=== PATIENT | female | born 1955 | race Caucasian/White ===

== ENCOUNTER → 2016-09-05 | Outpatient (CLI) | payer BC ==
--- NOTE | 2016-09-05 19:54 | WWHP ---
CHIEF COMPLAINT: The patient is here for her routine gynecologic exam. HPI: This is a 61-year-old G1, P1 with an LMP of 1982. She is status post TERESA/BSO for benign reasons. She previously saw Dr. Rod for her gynecologic care. She is without gynecologic complaints. She did have a recent bone density test on 08/16/2016 which showed osteopenia. PAST MEDICAL HISTORY: Chronic hypertension, elevated cholesterol, asthma, anxiety, and osteopenia. Dr. Salazar is her primary care physician. MEDICATIONS: 1. Amlodipine with Benazepril 5/20 mg 1 daily. 2. Celecoxib 200 mg 1 daily. 3. Famotidine 20 mg b.i.d. 4. TriCor generic 145 mg 1 daily. 5. Montelukast 10 mg 1 daily. 6. Sertraline 100 mg 1 daily. 7. [place] 7.5/325 q.6h p.r.n. 8. Albuterol inhaler p.r.n. 9. Calcium 600 mg b.i.d. 10. Vitamin D3 1000 units daily. 11. Vitamin B12 1000 units daily. 12. Selenium 200 mg daily. ALLERGIES: No known drug allergies. PAST SURGICAL HISTORY: Left knee replacement 2015. Left shoulder surgery 2015, appendectomy 1998, cholecystectomy 1999, TERESA/BSO 1982. Colonoscopy in 2015 and this was her second one, section in the past. PAST DIAMOND PICKER HISTORY: She is status post TERESA/BSO for uterine fibroids and benign bleeding. She has no history of STDs. SOCIAL HISTORY: She quit smoking in 1981 and has about 4 alcoholic drinks per day. Denies drug use. She is and is not seeing anybody and has not been sexually active for many years. 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 She has 2 grandchildren. FAMILY HISTORY: Sister had breast cancer. Mother had colon cancer. Father had bladder cancer. Mother also had CHF and Alzheimer's. Father had coronary artery disease. Brother had diabetes. REVIEW OF SYSTEMS: Weight has been stable. RESPIRATORY: Occasional asthma symptoms. She denies cardiac problems. GI: Occasional bowel urgency in the morning and this has been since her cholecystectomy. PHYSICAL EXAM: Blood pressure 126/83. Height 4 feet 9 inches. Weight 159 pounds. Temperature 96.3, pulse 68. This is a short statured, well-nourished female who is alert and oriented x3 in no acute distress. HEENT is within normal limits. NECK: Supple without mass or thyromegaly. CHEST AND LUNGS: Clear to auscultation. HEART: Regular rate and rhythm. Breasts are without mass or discharge. Axillary exam is negative for adenopathy. BACK: Negative for CVA tenderness. ABDOMEN: Soft, nontender, without palpable masses. PELVIC EXAM: External genitalia reveals mild atrophy without lesions. Vagina reveals mild atrophy without lesions. There is no evidence of prolapse. Bimanual exam is negative for mass or tenderness. Rectovaginal exam is negative for mass or tenderness and is negative for occult blood. EXTREMITIES: Nontender. IMPRESSION: 1. A 61-year-old menopausal female, status post TERESA/BSO for benign reasons with normal gynecologic exam. 2. History of osteopenia. PLAN: 1. Pap smears have been discontinued. 2. Self breast examination was discussed. 3. Mammogram is due later this month and a slip was given to patient for this. 4. Osteoporosis prevention was discussed. Will plan on repeating bone density testing in 2 years. 5. She will return in one year.
== END | disposition home or self-care (01) ==
LOC: WWCWWP 09:58
PROVIDERS: ATTEND Obstetrics & Gynecology

== ENCOUNTER → 2016-09-19 | Outpatient (CLI) | payer BC ==
--- NOTE | 2016-09-21 09:28 | MM ---
Reason for exam: screening (asymptomatic). Last mammogram was performed 1 year ago. History: Family history of breast cancer in sister at age 58. Physical Findings: A clinical breast exam by your physician is recommended on an annual basis and results should be correlated with mammographic findings. MG Screening Mammo w CAD Bilateral CC and MLO view(s) were taken. Prior study comparison: September 20, 2015, mammogram, performed at [facility]. September 17, 2014, mammogram, performed at [facility]. Focal asymmetry upper right MLO view, 4.7cm from nipple. ASSESSMENT: Incomplete: need additional imaging evaluation, BI-RAD 0 RECOMMENDATION: Special view mammogram of the right breast. If lesion persists on supplemental views, image directed ultrasound is recommended. [facility] will attempt to contact patient to return for supplemental views and ultrasound if indicated.
== END | disposition home or self-care (01) ==
LOC: RADMAMWWP 14:53
PROVIDERS: ATTEND Obstetrics & Gynecology
DX: Z12.31 Encounter for screening mammogram for malignant neoplasm of breast (principal); R92.2 Inconclusive mammogram

== ENCOUNTER 2016-09-20 06:53 | Day surgery (SDC) | payer BC ==
[2016-07-31 11:41] VITALS: BMI 34.6
--- NOTE | 2016-09-19 14:34 | HP ---
DATE OF ADMISSION: 09/20/2016 Bebe New is a 61-year-old patient seen with progressive right shoulder pain. After having treatment options discussed, she elected to proceed with right shoulder arthroscopy. Consent was obtained. Past medical history is asthma, hypertension, hyperlipidemia. PAST SURGICAL HISTORY: Left shoulder arthroscopy, carpal tunnel release, right knee arthroscopy. DAILY MEDICATIONS: 1. Sertraline. 2. Celebrex. 3. Lotrel. 4. Singulair. 5. TriCor. 6. [place]. ALLERGIES: None. SOCIAL HISTORY: Patient denies current tobacco use. Physical evaluation of right shoulder: Flexion 150 degrees, abduction 110 degrees, external rotation is 30 degrees with pain and weakness. Tenderness along the anterolateral acromion and rotator cuff insertion. Impingement positive at 100 degrees, drop arm sign positive. Distal neurovascular exam intact. Radiographs of right shoulder revealed a type 2 anterior acromion, acromioclavicular joint osteoarthritis and cystic changes of the tuberosity. MRI right shoulder revealed a large retracted rotator cuff tendon tear. IMPRESSION: Right shoulder impingement with rotator cuff tear. PLAN: Right shoulder arthroscopy with subacromial decompression, probable arthroscopic rotator cuff repair, possible biceps tenotomy, possible Cristina procedure and debridement.
[~2016-09-20 06:53] MED LIST: DEXAMETHASONE SOD PHOSPHATE 10 MG/ML 1 ML VIAL IV ONE; LACTATED RINGERS 1,000 ML IV SCH; LIDOCAINE 1% 20 ML VIAL (10MG/ML) FOR IV START INTRADERMA PRN; MIDAZOLAM 2 MG/2 ML VIAL IV PRN; ONDANSETRON 4 MG/2 ML VIAL IVP ONE; SCOPOLAMINE 1.5MG/72HR PATCH TRANSDERM ONE; ceFAZolin 1,000 MG in DEXTROSE/WATER 1 50ML.BAG IV ONE; fentaNYL (PF) 50 MCG/ML 20 ML VIAL IVP PRN
[2016-09-20] MEDS ORDERED: LIDOCAINE 1% 20 ML VIAL (10MG/ML) FOR IV START INTRADERMA ONE (07:28)
[2016-09-20 07:32] LABS: Basophils # (A) 0.1 k/uL (0-0.2); Basophils % (A) 1 %; CH 27.9; CHCM 32.5; Eosinophils # (A) 0.5 k/uL (0-0.7); Eosinophils % (A) 6 %; HCT 42.4 % (34.0-46.0); HDW 2.54; HGB 13.6 gm/dL (11.4-16.0); Luc # (Auto) 0.16; Luc % (Auto) 2; Lymphocytes # (A) 2.1 k/uL (1.0-4.8); Lymphocytes % (A) 27 %; MCH 27.7 pg (25.0-35.0); MCHC 32.2 g/dL (31.0-37.0); MCV 86.2 fL (80.0-100.0); Mean Platelet Volume 8.1; Monocytes # (A) 0.5 k/uL (0-1.0); Monocytes % (A) 7 %; Neutrophils # (A) 4.4 k/uL (1.3-7.7); Neutrophils % (A) 57 %; RBC 4.92 m/uL (3.80-5.40); RDW 12.8 % (11.5-15.5); WBC 7.7 k/uL (3.8-10.6); WBC (Perox) 7.75
[2016-09-20] MEDS ORDERED: ePHEDrine 50 MG/ML 1 ML AMP ONE (08:24)
[2016-09-20] MEDS ORDERED: HYDROmorphone (PF) 1 MG/ML ONE (08:24)
[2016-09-20] MEDS ORDERED: MIDAZOLAM 2 MG/2 ML VIAL ONE (08:24)
[2016-09-20] MEDS ORDERED: PROPOFOL 10 MG/ML 20 ML VIAL IV ONE (08:24)
[2016-09-20] MEDS ORDERED: SUCCINYLCHOLINE CHLORIDE VIAL 200 MG/10 ML VIAL IV ONE (08:24)
[2016-09-20] MEDS ORDERED: fentaNYL (PF) 50 MCG/ML 2 ML AMP ONE (08:24)
[2016-09-20] MEDS ORDERED: LIDOCAINE 1% INJ 10MG/ML (20 ML MDV) ONE (08:24)
[2016-09-20] MEDS ORDERED: BUPIVACAINE (PF) 0.5% 30 ML VIAL INTRAARTIC ONE (08:58)
[2016-09-20 10:15] VITALS: TEMP 96.8
--- NOTE | 2016-09-20 10:29 | P.OP ---
Date of Procedure: 09/20/16 Preoperative Diagnosis: Right shoulder impingement Postoperative Diagnosis: 1. Right shoulder rotator cuff tear 2. Right shoulder impingement 3. Right shoulder labral tear Procedure(s) Performed: 1. Right shoulder arthroscopic rotator cuff repair 2. Right shoulder arthroscopic subacromial decompression 3. Right shoulder arthroscopic debridement labral tear Implants: 4-valeris peek anchors Anesthesia: IMANA, local Surgeon: Aaron Mccoy Transportation Associate #1: Jacinto Valenzuela Estimated Blood Loss (ml): 30 Pathology: none sent Condition: stable Disposition: PACU Indications for Procedure: 61-year-old patient seen with progressive right shoulder pain. After having options regarding treatment discussed, she elected to proceed with right shoulder arthroscopy. Operative Findings: See description of procedure Description of Procedure: The patient was then taken to the operative suite. The patient underwent a general anesthetic by the department of anesthesia. The patient was placed into a lateral position and secured. There was appropriate padding of the bony prominence. Right shoulder was then prepped and draped in normal sterile orthopedic fashion. We placed the extremity in 10 pounds of longitudinal traction. A posterior incision was now made for a posterior working portal site. The trocar and cannula were inserted into the glenohumeral joint. Arthroscopy was initiated. Spinal needle was now inserted anteriorly, to ascertain the anterior working portal site. An incision was now made in that area, a trocar was inserted followed by a probe. There was some superficial tearing of the superior labrum. There was absence of the biceps tendon consistent with a old complete tear. There was a obvious large retracted rotator cuff tear. There were grade 2 chondral moist changes of the glenoid. There were no loose bodies. I debrided the labral tear down to stable tissue. The residual labrum was probed and found to be stable. Instruments were now removed from the glenohumeral joint. Utilizing the posterior working portal site, the trocar and cannula were inserted into the subacromial space. Arthroscopy initiated. I made an incision 2 fingerbreadths lateral to the acromion. I introduced my trocar followed by my ArthroCare ablator. I now began ablating thick subacromial bursal tissue, which exposed the undersurface of the anterior acromion. This was diminished subacromial space. There was a very prominent anterior acromion. A motorized bur was introduced and a subacromial decompression was performed. I also excised some osteophytes off the inferior aspect of the distal clavicle. The AC joint was visualized and noted to be mild to moderately arthritic. I did not think enough to warrant a Cristina procedure. I turned my attention to the rotator cuff tendon tear. There was a 2.5-3 cm tear. I debrided the margins down to stable tissue. The residual tendon was easily pulled over the footprint area. I abraded the footprint with a motorized bur. I created an ic designer custom portal site off the lateral aspect of the anterior acromion. I introduced 2 medial row anchors with 2 sutures each. I now passed all 8 limbs of suture through good bites of rotator cuff tendon. The sutures were crisscrossed and 2 additional lateral anchors were now inserted compressing the entire tendon on the footprint very nicely. The residual suture limbs were clipped. The repair was probed and found to be stable. I injected 1 mL of Allogen into the footprint repair site/intra-articular area. Instruments now removed from the portal sites. All portal sites were approximated with nylon suture. The subacromial space was infiltrated with local analgesic. Sterile dressings were applied followed by a shoulder immobilizer. Jacinto ALONSO assisted with the procedure. The patient was awakened, transferred to a bed, and taken to recovery in stable condition.
[2016-09-20] MEDS: HYDROmorphone 1 MG/ML 1 ML SYRINGE IVP PRN ×2 (10:38→10:45)
[2016-09-20] MEDS ORDERED: HYDROcodone/APAP 10-325MG 1 EACH TAB PO ONE (12:00)
[2016-09-20 12:48] VITALS: BP 116/78; PULSE 76; RESP 18
== END 2016-09-20 12:49 | disposition home or self-care (01) ==
LOC: OR 06:53
PROVIDERS: ATTEND Orthopaedic Surgery
DX: M75.101 Unspecified rotator cuff tear or rupture of right shoulder, not specified as traumatic (principal); M75.41 Impingement syndrome of right shoulder; S43.491A Other sprain of right shoulder joint, initial encounter; X58.XXXA Exposure to other specified factors, initial encounter; M25.711 Osteophyte, right shoulder; I10 Essential (primary) hypertension; E78.5 Hyperlipidemia, unspecified; J45.909 Unspecified asthma, uncomplicated; K21.9 Gastro-esophageal reflux disease without esophagitis; Z79.02 Long term (current) use of antithrombotics/antiplatelets; Z79.899 Other long term (current) drug therapy
CPT/HCPCS: 85025; 29826; 29827; C1713 ×2; C1765; J2250; J0330; J1100; J2405; J2001; J3010; J1170; J0690; J2704

== ENCOUNTER → 2016-10-19 | Outpatient (CLI) | payer BC ==
--- NOTE | 2016-10-20 06:59 | MM ---
Reason for exam: additional evaluation requested from abnormal screening. Last mammogram was performed 1 month ago. History: Family history of breast cancer in sister at age 58. Physical Findings: Nurse Summary: 1.5cm nodule in the right breast at 3 o'clock (nurse fifi). MG Work Up Mamm w CAD RT Spot compression CC, spot compression MLO, and LM view(s) were taken of the right breast. Prior study comparison: September 19, 2016, bilateral MG screening mammo w CAD. September 20, 2015, mammogram, performed at [facility]. The breast tissue is heterogeneously dense. This may lower the sensitivity of mammography. Developing asymmetry. There is persistent density on ML and compression MLO view, ultrasound recommended for additional evaluation. These results were verbally communicated with the patient and result sheet given to the patient on 10/19/16. ASSESSMENT: Incomplete: need additional imaging evaluation, BI-RAD 0 RECOMMENDATION: Ultrasound of the right breast.
--- NOTE | 2016-10-20 07:12 | USB ---
Reason for exam: additional evaluation requested from abnormal screening. History: Family history of breast cancer in sister at age 58. US Breast Workup RT Right breast ultrasound including all four quadrants, the retroareolar region and axilla demonstrates a 0.61 x 0.34 x 0.18cm lesion too small to characterize at 12 o'clock and an axillary lymph node measuring 0.6cm transverse distortion. These results were verbally communicated with the patient and result sheet given to the patient on 10/19/16. ASSESSMENT: Benign, BI-RAD 2 RECOMMENDATION: Follow-up diagnostic mammogram of the right breast in 6 months.
== END | disposition home or self-care (01) ==
LOC: RADMAMWWP 14:59
PROVIDERS: ATTEND Obstetrics & Gynecology
DX: R92.8 Other abnormal and inconclusive findings on diagnostic imaging of breast (principal)
CPT/HCPCS: 76641; G0206

== ENCOUNTER 2017-02-14 08:31 | Day surgery (SDC) | payer BC ==
[2017-02-06 08:22] VITALS: BMI 30.4
--- NOTE | 2017-02-13 14:03 | HP ---
DATE OF ADMISSION: 02/14/2017 Bebe New is a 62-year-old patient seen with left shoulder adhesive capsulitis after previously having undergone arthroscopy with rotator cuff repair. We discussed options, she elected to proceed with manipulation under anesthesia of left shoulder with steroid injection. Consent was obtained. PAST MEDICAL HISTORY: Asthma. PAST SURGICAL HISTORY: Bilateral shoulder arthroscopy, right knee arthroscopy, bilateral carpal tunnel release. DAILY MEDICATIONS: 1. Sertraline. 2. Lotrel. 3. Singulair. 4. TriCor. 5. [place]. ALLERGIES: None. SOCIAL HISTORY: Patient denies tobacco use. Physical evaluation of the left shoulder: Her previous arthroscopic portal sites are well healed. There is no hyperemia, erythema present, flexion 80 degrees, abduction 80 degrees, external rotation 0 degrees. There is good strength. Her distal neurovascular exam is intact. Radiographs of her left shoulder reveal the stable conversion to a flat anterior acromion, no acute changes. IMPRESSION: Left shoulder adhesive capsulitis. PLAN: Manipulation under anesthesia of left shoulder with steroid injection.
[~2017-02-14 08:31] MED LIST changes: -DEXAMETHASONE SOD PHOSPHATE 10 MG/ML 1 ML VIAL IV ONE; +HYDROmorphone 1 MG/ML 1 ML SYRINGE IVP PRN; -ONDANSETRON 4 MG/2 ML VIAL IVP ONE; +ONDANSETRON 4 MG/2 ML VIAL IVP PRN; -SCOPOLAMINE 1.5MG/72HR PATCH TRANSDERM ONE; -ceFAZolin 1,000 MG in DEXTROSE/WATER 1 50ML.BAG IV ONE; +ceFAZolin 2 GM in SODIUM CHLORIDE 0.9% 100 ML IVPB ONE; -fentaNYL (PF) 50 MCG/ML 20 ML VIAL IVP PRN
[2017-02-14] MEDS ORDERED: PROPOFOL 10 MG/ML 20 ML VIAL IV ONE (09:23)
[2017-02-14] MEDS ORDERED: fentaNYL (PF) 50 MCG/ML 2 ML AMP ONE (09:23)
[2017-02-14] MEDS ORDERED: LIDOCAINE 1% INJ 10MG/ML (20 ML MDV) ONE (09:23)
--- NOTE | 2017-02-14 09:39 | P.OP ---
Date of Procedure: 02/14/17 Preoperative Diagnosis: Left shoulder adhesive capsulitis Postoperative Diagnosis: Left shoulder adhesive capsulitis Procedure(s) Performed: Manipulation under anesthesia left shoulder with steroid injection Implants: None Anesthesia: MAC Surgeon: Aaron Mccoy Estimated Blood Loss (ml): 0 Pathology: none sent Condition: stable Disposition: PACU Indications for Procedure: 62-year-old patient seen with persistent left shoulder adhesive capsulitis after previously having undergone arthroscopic rotator cuff repair. After having treatment options discussed, she elected to proceed with manipulation under anesthesia left shoulder with steroid injection. Operative Findings: See description of procedure Description of Procedure: The patient was taken to a monitored anesthesia area. The patient underwent IV anesthesia by the department of anesthesia. Once sufficient anesthesia was noted I performed a manipulation of the left shoulder. I was able to achieve 170 of flexion, 170 of abduction, 70 of external rotation and internal rotation to about T12. The anterior aspect of the left shoulder was now prepped and draped in the normal sterile orthopedic fashion. I injected 1 mL Depo-Medrol and 3 mL were percent plain Marcaine into the glenohumeral joint under sterile technique. A sterile Band-Aid was applied. The shoulder was again taken through range of motion. The patient was awakened having tolerated the procedure well.
[2017-02-14 09:50] VITALS: RESP 16; TEMP 98.2
[2017-02-14 11:15] VITALS: PULSE 67
[2017-02-14] MEDS ORDERED: HYDROcodone/APAP 7.5-325MG 1 EACH TAB PO ONE (11:24)
[2017-02-14 11:38] VITALS: BP 103/62
== END 2017-02-14 11:49 | disposition home or self-care (01) ==
LOC: OR 08:31
PROVIDERS: ATTEND Orthopaedic Surgery
DX: M75.02 Adhesive capsulitis of left shoulder (principal); J45.909 Unspecified asthma, uncomplicated; I10 Essential (primary) hypertension; E78.5 Hyperlipidemia, unspecified; K21.9 Gastro-esophageal reflux disease without esophagitis; Z79.899 Other long term (current) drug therapy; Z79.891 Long term (current) use of opiate analgesic
CPT/HCPCS: 23700; J2405; J2001; J3010; J2704

== ENCOUNTER → 2017-04-09 | Outpatient (CLI) | payer BC ==
--- NOTE | 2017-04-09 11:09 | MM ---
Reason for exam: follow-up at short interval from prior study. Last mammogram was performed 6 months ago. History: Patient is postmenopausal. Family history of breast cancer in sister at age 58. Took estrogen beginning at age 39. Physical Findings: Nurse Summary: 3cm nodule in the right breast at 3:30 (nurse dw). MG 3D Diag Mammo W/Cad RT CC and MLO view(s) were taken of the right breast. Prior study comparison: October 19, 2016, right breast MG work up mamm w CAD RT. September 19, 2016, bilateral MG screening mammo w CAD. There are scattered fibroglandular densities. These results were verbally communicated with the patient and result sheet given to the patient on 04/09/17. ASSESSMENT: Incomplete: need additional imaging evaluation, BI-RAD 0 RECOMMENDATION: Ultrasound of the right breast.
--- NOTE | 2017-04-09 11:12 | USB ---
Reason for exam: additional evaluation requested from abnormal screening. History: Patient is postmenopausal. Family history of breast cancer in sister at age 58. Took estrogen beginning at age 39. US Breast Limited RT Right breast ultrasound demonstrates a 3.6 x 1.6 x 3.3cm oval, solid, isoechoic lesion at 5 o'clock palpable. These results were verbally communicated with the patient and result sheet given to the patient on 04/09/17. ASSESSMENT: Suspicious, BI-RAD 4 RECOMMENDATION: Ultrasound core biopsy of the right breast. Called Dr. Salazar with mammographic findings and has scheduled an appointment for the patient for 04/19/17 at 2:[address] Liriano. PRELIMINARY REPORT CALLED AND FAXED TO DR. LIRIANO ON 04/09/17 /TMP.
== END | disposition home or self-care (01) ==
LOC: RADMAMWWP 09:45
PROVIDERS: ATTEND Family Medicine
DX: R92.8 Other abnormal and inconclusive findings on diagnostic imaging of breast (principal)
CPT/HCPCS: 76642; G0206; G0279

== ENCOUNTER → 2017-04-26 | Day surgery (SDC) | payer BC ==
[2017-04-26 11:33] VITALS: RESP 16; BMI 34.4
[2017-04-26 13:05] VITALS: BP 115/74; PULSE 65; TEMP 97.6
--- NOTE | 2017-04-26 13:36 | USB ---
EXAMINATION TYPE: US biopsy breast VAD RT, MG diagnostic mammo RT wo CAD DATE OF EXAM: 04/26/2017 CLINICAL HISTORY: N63 BREAST LUMP,MASS. TECHNIQUE: Ultrasound guided core biopsy of right breast. COMPARISON: NONE FINDINGS: The procedure of ultrasound guided core biopsy was explained to the patient. Benefits, alt ernatives, and risks were discussed. An informed consent was then obtained. The patient was placed in supine positioning for imaging and for the procedure. The overlying skin w as prepped and draped in usual sterile fashion. Lidocaine buffered with bicarbonate was used as anes thetic into the skin and subcutaneous tissue up to area of concern in the right breast. A rony was m barrett with surgical scalpel. Under ultrasound guidance, a 12-gauge vacuum assisted biopsy gun device was used to obtain 5 core joshua ples. Following this, a biopsy clip was left in lesion. The patient tolerated the procedure well without any immediate complication. The patient was kept in the radiology department for short stay after the procedure and then discharged home in stable condi tion. IMPRESSION: Successful, uncomplicated ultrasound guided core biopsy of area of concern in the right b reast, full pathology results to follow.
== END ==
LOC: RADUSWWP 11:13
PROVIDERS: ATTEND Surgery
DX: N60.31 Fibrosclerosis of right breast (principal); N64.1 Fat necrosis of breast
CPT/HCPCS: 88305; 19083; G0206; A4648; J2001

== ENCOUNTER → 2017-11-05 | Outpatient (CLI) | payer BC ==
--- NOTE | 2017-11-05 11:07 | USB ---
Reason for exam: follow-up at short interval from prior study. History: Patient is postmenopausal. Family history of breast cancer in sister at age 58. Benign US biopsy breast VAD RT of the right breast, April 26, 2017. Took estrogen beginning at age 39. Physical Findings: Nurse Summary: right breast soft movable palpable 3 o'clock 4 x 1.5cm, tender (nurse ts). US Breast RT Right breast ultrasound includes all four quadrants, the retroareolar region and axilla. Finding demonstrates a 0.4 x 0.2 x 0.4cm oval, cystic lesion at 1 o'clock and a 4.4 x 1.6 x 3.1cm oval, solid, isoechoic lesion at 5 o'clock previously biopsied with benign results. These results were verbally communicated with the patient and result sheet given to the patient on 11/05/17. ASSESSMENT: Benign, BI-RAD 2 RECOMMENDATION: Routine screening mammogram of both breasts in 5 months. Back on schedule for April 2018.
== END | disposition home or self-care (01) ==
LOC: RADUSWWP 08:45
PROVIDERS: ATTEND Surgery
DX: R92.8 Other abnormal and inconclusive findings on diagnostic imaging of breast (principal)

== ENCOUNTER → 2018-05-15 | Outpatient (CLI) | payer BC ==
--- NOTE | 2018-05-15 22:35 | CT ---
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 CT DLP: 142.70 mGycm Automated exposure control for dose reduction was used. TECHNIQUE: Contiguous high-resolution axial scanning of the temporal bones performed after the admin istration of 100 mL Isovue-300 IV contrast. Coronal reformatted images obtained. FINDINGS: There is no gross abnormality of visualized intracranial structures. External auditory canals are patent. Inferior right mastoid air cells are hypoplastic. Minimal inferior mastoid air cell opacification. Ho wever, there is complete opacification of the left mastoid air cells and additional opacification ext ending within the mesotympanum and infratympanum on the left. This opacification partially encases th e inferior aspect of the middle ear ossicles. No evidence of ossicular erosion is seen. The right mid dle ear cavity is well pneumatized. There is no abnormality of middle ear ossicles. There is no abnormality of bony labyrinths. The vestibular aqueduct are well visualized. The facial nerve canal is normal bilaterally. The internal auditory canal and meati are symmetrical bilaterally. There is no evidence of fractures. Paranasal sinuses show trace mucosal thickening in the inferior ethmoid air cells. Reformatted images confirm above findings. IMPRESSION: 1. Fluid in the left mastoid air cells. Correlate for left-sided mastoiditis. 2. Additional opacification involving the left mesotympanum and infratemporal. Otitis media and janeth steatoma are in the differential.
== END | disposition home or self-care (01) ==
LOC: RADCTMAIN 17:30
PROVIDERS: ATTEND Otolaryngology Otolaryngic Allergy
DX: R93.8 Abnormal findings on diagnostic imaging of other specified body structures (principal); D38.5 Neoplasm of uncertain behavior of other respiratory organs
CPT/HCPCS: 70481; Q9967

== ENCOUNTER → 2018-05-17 | Outpatient (CLI) | payer BC ==
--- NOTE | 2018-05-20 08:50 | NM ---
EXAMINATION TYPE: NM bone/joint limited DATE OF EXAM: 05/17/2018 COMPARISON: Outside MRI May 03, 2018 reviewed on PACS system HISTORY: Abnormal MRI. L4 lesion. TECHNIQUE: After the intravenous administration of 24.4 mCi Tc 99m MDP. Images acquired 3 hours pos t injection. Multiple views of abdomen and pelvis are submitted in several projections. Findings: There is no abnormal uptake within the visualized osseous structures with particular attent ion to the L4 vertebra at area of 5 mm low T1 and T2 focus. This is strongly favored benign based on low signal on MRI and no radiotracer uptake in bone scan. IMPRESSION: As above.
== END | disposition home or self-care (01) ==
LOC: RADNMMAIN 10:39
PROVIDERS: ATTEND Family Medicine
DX: R93.7 Abnormal findings on diagnostic imaging of other parts of musculoskeletal system (principal)
CPT/HCPCS: 78300; A9503

== ENCOUNTER → 2018-06-11 | Outpatient (CLI) | payer BC ==
--- NOTE | 2018-06-12 10:57 | MM ---
Reason for exam: screening (asymptomatic). Last mammogram was performed 1 year and 2 months ago. History: Patient is postmenopausal. Family history of breast cancer in sister at age 58. Benign US biopsy breast VAD RT of the right breast, April 26, 2017. Took estrogen beginning at age 39. Physical Findings: A clinical breast exam by your physician is recommended on an annual basis and results should be correlated with mammographic findings. MG 3D Screening Mammo W/Cad Bilateral CC and MLO view(s) were taken. Prior study comparison: April 26, 2017, right breast MG diagnostic mammo RT wo CAD. April 09, 2017, right breast MG 3d diag mammo w/cad RT. There are scattered fibroglandular densities. Right biopsy marker noted. Stable bilateral prominent axillary nodes. ASSESSMENT: Benign, BI-RAD 2 RECOMMENDATION: Routine screening mammogram of both breasts in 1 year.
== END | disposition home or self-care (01) ==
LOC: RADMAMWWP 15:44
PROVIDERS: ATTEND Family Medicine
DX: Z12.31 Encounter for screening mammogram for malignant neoplasm of breast (principal)
CPT/HCPCS: 77063; 77067

== ENCOUNTER → 2018-08-02 | Outpatient (CLI) | payer BC ==
--- NOTE | 2018-08-05 07:30 | CT ---
EXAMINATION TYPE: CT angio head neck DATE OF EXAM: 08/02/2018 HISTORY: glomus tumor COMPARISON: 05/15/[address] DLP: 302.4 mGycm. Automated Exposure Control for Dose Reduction was Utilized. TECHNIQUE: CTA scan of the neck is performed with IV Contrast, patient injected with 65 mL of Isovue 370, axial images are obtained, coronal and sagittal reformatted images are reviewed. Three-D recons tructed images are created on an independent workstation and reviewed. FINDINGS: Carotid/Vascular Structures: There is a conventional three-vessel branch pattern of the aortic arch. The common carotid arteries, carotid bulbs, and cervical portions of the internal carotid arteries de monstrate no calcific atherosclerotic plaquing or hemodynamically significant stenosis. There is mini mal atherosclerosis is seen of the aortic arch. The vertebral arteries are patent and unremarkable. V ertebral arteries are codominant. In the arterial phase no abnormal intracranial enhancement is seen. The intracranial portions of the carotid arteries are also patent without stenosis or occlusion. No aneurysmal outpouching is seen. There is slight normal variant posterior course of the left P1 segmen t. Right communicating artery appears diminutive however the [place] appears intact. Promine nt infundibulum of the right A2 segment is seen on axial images only. Other: The left mastoid air cells are opacified. Again there is soft tissue density within the left h ypotympanum and nasal tympanum surrounding the left ossicles. No blunting of the scutum is yet seen. Left tympanic membrane appears retracted. This soft tissue density about the lateral wall of the hori zontal portion of the carotid although a very thin intact wall remains such as on series 14 image 30 wall is not perceived on image 31 however does remain apparent on image 32. Paranasal sinuses appear well aerated. Lung apices are also well aerated. Mild multilevel degenerativ e changes of the cervical spine are seen. Parotid and submandibular glands are unremarkable. No adeno misa within the neck. Orbits are symmetric and unremarkable. IMPRESSION: 1. Persistent soft tissue density or complex fluid within the left mesotympanum and hypotympanum with opacification of the left mastoid air cells. Although the left carotid does not appear aberrant in t he horizontal portion there is a very thin osseous septum perceived between the middle ear cavity les ion and carotid artery on 2 images and imperceptible wall on a single image. 2. No evidence of hemodynamically significant stenosis, focal occlusion or aneurysmal dilatation in t he head or neck.
== END ==
LOC: RADCTMAIN 16:47
PROVIDERS: ATTEND Otolaryngology
DX: D18.00 Hemangioma unspecified site (principal)
CPT/HCPCS: 70496; 70498; Q9967

== ENCOUNTER 2018-10-18 18:03 | Emergency (ER) | payer BC ==
[2018-10-18 18:41] LABS: Glucose,Whole Blood 118 mg/dL (75-99)
[2018-10-18 19:11] LABS: Basophils # (A) 0.1 k/uL (0-0.2); Basophils % (A) 1 %; Eosinophils # (A) 0.5 k/uL (0-0.7); Eosinophils % (A) 5 %; HCT 41.8 % (34.0-46.0); HGB 13.9 gm/dL (11.4-16.0); Lymphocytes # (A) 2.5 k/uL (1.0-4.8); Lymphocytes % (A) 25 %; MCH 28.1 pg (25.0-35.0); MCHC 33.4 g/dL (31.0-37.0); MCV 84.3 fL (80.0-100.0); Mean Platelet Volume 7.8; Monocytes # (A) 0.8 k/uL (0-1.0); Monocytes % (A) 8 %; Neutrophils % (A) 60 %; Platelet Count 222 k/uL (150-450); RBC 4.95 m/uL (3.80-5.40); RDW 12.7 % (11.5-15.5); WBC 10.1 k/uL (3.8-10.6)
[2018-10-18 19:19] LABS: Albumin 4.7 g/dL (3.5-5.0); Anion Gap 10 mmol/L; Blood Urea Nitrogen 19 mg/dL (7-17); Calcium 10.2 mg/dL (8.4-10.2); Carbon Dioxide 25 mmol/L (22-30); Chloride 105 mmol/L (98-107); Glucose 111 mg/dL (74-99); INR 0.9 (<1.2); Partial Thromboplastin Time 23.4 sec (22.0-30.0); Sodium 140 mmol/L (137-145); Total Bilirubin 1.2 mg/dL (0.2-1.3)
[2018-10-18 19:22] LABS: ALT 26 U/L (9-52); AST 43 U/L (14-36); Alkaline Phosphatase 108 U/L (38-126); Potassium 4.8 mmol/L (3.5-5.1)
[2018-10-18 19:28] LABS: Creatine Kinase 74 U/L (30-135)
--- NOTE | 2018-10-18 19:35 | ED ---
Neuro HPI - General Chief Complaint: Neuro Symptoms/Deficit Stated Complaint: facial droop, numbness Time Seen by Provider: 10/18/18 18:40 Source: patient Mode of arrival: ambulatory Limitations: no limitations - History of Present Illness Is the patient presenting with stroke symptoms?: Yes Last Known Well Date: 10/17/18 Last Known Well Time: 15:00 Initial Comments: 63-year-old female patient with past medical history significant for hyperlipidemia, hypertension, and recent ear surgery on 09/06/2018 presents to the emergency department today for evaluation of left-sided facial droop, tongue numbness, and slurred speech. Patient states symptoms started around 3: 00 in the afternoon yesterday. States that today around dinner 5 PM the facial droop seemed to worsen. Patient denies any difficulty closing her eye or any abnormal tearing from the left eye. She denies any numbness, tingling, or weakness to her extremities. Denies any blurred or double vision. Denies any headache. Patient states that since symptom onset she has also been having a ringing to the left ear. Patient denies any recent rash, fever, chills, shortness breath, chest pain, abdominal pain, nausea, vomiting, diarrhea, constipation, back pain, hematuria, dysuria, urinary urgency, urinary frequency , or any other complaints. - Related Data Home Medications: Home Medications Medication Instructions Recorded Confirmed Albuterol Inhaler [Ventolin 2 puff INHALATION Q6H PRN 06/14/15 10/18/18 Inhaler] Sertraline HCl [Zoloft] 100 mg PO DAILY 06/14/15 10/18/18 Calcium Carbonate [Calcium] 600 mg PO BID 03/20/16 10/18/18 Montelukast Sodium [Singulair] 10 mg PO HS 07/31/16 10/18/18 Cholecalciferol [Vitamin D3] 1,000 unit PO BID 02/06/17 10/18/18 Cyanocobalamin (Vitamin B-12) 1,000 mcg PO DAILY 02/06/17 10/18/18 [Vitamin B-12] Rosuvastatin Calcium [Crestor] 10 mg PO Q48H 02/06/17 10/18/18 amLODIPine BESYLATE/BENAZEPRIL 1 cap PO DAILY 04/23/17 10/18/18 [Lotrel 5-20 mg Capsule] Celecoxib [CeleBREX] 200 mg PO DAILY 10/18/18 10/18/18 Famotidine [Pepcid] 20 mg PO BID 10/18/18 10/18/18 Levothyroxine Sodium [Synthroid] 50 mcg PO DAILY 10/18/18 10/18/18 Metoprolol Tartrate [Lopressor] 12.5 mg PO DAILY 10/18/18 10/18/18 [place]-3 Fatty Acids/Fish Oil [Fish 1 cap PO BID 10/18/18 10/18/18 Oil 1,000 mg Softgel] Rosuvastatin Calcium [Crestor] 5 mg PO Q48H 10/18/18 10/18/18 Previous Rx's Medication Instructions Recorded predniSONE 50 mg PO DAILY #5 tab 10/18/18 valACYclovir HCL [Valacyclovir] 1,000 mg PO TID #21 tab 10/18/18 Allergies/Adverse Reactions: Allergies Allergy/AdvReac Type Severity Reaction Status Date / Time No Known Allergies Allergy Verified 10/18/18 19:10 Review of Systems ROS Statement: Those systems with pertinent positive or pertinent negative responses have been documented in the HPI. ROS Other: All systems not noted in ROS Statement are negative. General Exam Limitations: no limitations General appearance: alert, in no apparent distress, other (This is a well- developed, well-nourished adult female patient in no acute distress. Vital signs upon presentation are temperature 97.5F, pulse 93, respirations 20, blood pressure 159/108, pulse ox 96% on room air.) Eye exam: Present: normal appearance, PERRL, EOMI. Absent: scleral icterus, conjunctival injection, nystagmus, periorbital swelling ENT exam: Present: normal exam, normal oropharynx, mucous membranes moist, TM's normal bilaterally Respiratory exam: Present: normal lung sounds bilaterally. Absent: respiratory distress, wheezes, rales, rhonchi, stridor Cardiovascular Exam: Present: regular rate, normal rhythm, normal heart sounds. Absent: systolic murmur, diastolic murmur, rubs, gallop, clicks GI/Abdominal exam: Present: soft, normal bowel sounds. Absent: distended, tenderness, guarding, rebound, rigid Neurological exam: Present: alert, oriented X3, CN II-XII intact, other (And NIHSS is 4) Expanded Patient oriented to: Present: person, place, time Speech: Present: fluid speech Cranial nerves: EOM's Intact: Normal, Tongue Deviation: Normal, Nystagmus: Normal, Facial Palsy without Forehead Movement: Abnormal Left Motor strength exam: RUE: 5, LUE: 5, RLE: 5, LLE: 5 Psychiatric exam: Present: normal affect, normal mood Skin exam: Present: warm, dry, intact, normal color. Absent: rash Stroke MDM - Lab Data Result diagrams: 10/18/18 18:42 10/18/18 18:42 Lab Results 10/18/18 10/18/18 10/18/18 Range/Units 18:38 18:42 18:42 WBC 10.1 (3.8-10.6) k/uL RBC 4.95 (3.80-5.40) m/uL Hgb 13.9 (11.4-16.0) gm/dL Hct 41.8 (34.0-46.0) % MCV 84.3 (80.0-100.0) fL MCH 28.1 (25.0-35.0) pg MCHC 33.4 (31.0-37.0) g/dL RDW 12.7 (11.5-15.5) % Plt Count 222 (150-450) k/uL Neutrophils % 60 % Lymphocytes % 25 % Monocytes % 8 % Eosinophils % 5 % Basophils % 1 % Neutrophils # 6.0 (1.3-7.7) k/uL Lymphocytes # 2.5 (1.0-4.8) k/uL Monocytes # 0.8 (0-1.0) k/uL Eosinophils # 0.5 (0-0.7) k/uL Basophils # 0.1 (0-0.2) k/uL PT (9.0-12.0) sec INR (<1.2) APTT (22.0-30.0) sec Sodium (137-145) mmol/L Potassium (3.5-5.1) mmol/L Chloride (98-107) mmol/L Carbon Dioxide (22-30) mmol/L Anion Gap mmol/L BUN (7-17) mg/dL Creatinine (0.52-1.04) mg/dL Est GFR (CKD-EPI)AfAm (>60 ml/min/1.73 sqM) Est GFR (CKD-EPI)NonAf (>60 ml/min/1.73 sqM) Glucose (74-99) mg/dL POC Glucose (mg/dL) 118 H (75-99) mg/dL POC Glu [employer]ault Attendant ID Ari Hoff Calcium (8.4-10.2) mg/dL Total Bilirubin (0.2-1.3) mg/dL AST (14-36) U/L ALT (9-52) U/L Alkaline Phosphatase (38-126) U/L Total Creatine Kinase 74 (30-135) U/L CK-MB (CK-2) 0.8 (0.0-2.4) ng/mL CK-MB (CK-2) Rel Index 1.1 Troponin I <0.012 (0.000-0.034) ng/mL Total Protein (6.3-8.2) g/dL Albumin (3.5-5.0) g/dL Urine Color Urine Appearance (Clear) Urine pH (5.0-8.0) Ur Specific [place] (1.001-1.035) Urine Protein (Negative) Urine Glucose (UA) (Negative) Urine Ketones (Negative) Urine Blood (Negative) Urine Nitrite (Negative) Urine Bilirubin (Negative) Urine Urobilinogen (<2.0) mg/dL Ur Leukocyte Esterase (Negative) Urine RBC (0-5) /hpf Urine WBC (0-5) /hpf Ur Squamous Epith Cells (0-4) /hpf Urine Bacteria (None) /hpf Hyaline Casts (0-2) /lpf Urine Mucus (None) /hpf 10/18/18 10/18/18 10/18/18 Range/Units 18:42 18:42 21:14 WBC (3.8-10.6) k/uL RBC (3.80-5.40) m/uL Hgb (11.4-16.0) gm/dL Hct (34.0-46.0) % MCV (80.0-100.0) fL MCH (25.0-35.0) pg MCHC (31.0-37.0) g/dL RDW (11.5-15.5) % Plt Count (150-450) k/uL Neutrophils % % Lymphocytes % % Monocytes % % Eosinophils % % Basophils % % Neutrophils # (1.3-7.7) k/uL Lymphocytes # (1.0-4.8) k/uL Monocytes # (0-1.0) k/uL Eosinophils # (0-0.7) k/uL Basophils # (0-0.2) k/uL PT 10.0 (9.0-12.0) sec INR 0.9 (<1.2) APTT 23.4 (22.0-30.0) sec Sodium 140 (137-145) mmol/L Potassium 4.8 (3.5-5.1) mmol/L Chloride 105 (98-107) mmol/L Carbon Dioxide 25 (22-30) mmol/L Anion Gap 10 mmol/L BUN 19 H (7-17) mg/dL Creatinine 0.65 (0.52-1.04) mg/dL Est GFR (CKD-EPI)AfAm >90 (>60 ml/min/1.73 sqM) Est GFR (CKD-EPI)NonAf >90 (>60 ml/min/1.73 sqM) Glucose 111 H (74-99) mg/dL POC Glucose (mg/dL) (75-99) mg/dL POC Glu Bank Vault Attendant ID Calcium 10.2 (8.4-10.2) mg/dL Total Bilirubin 1.2 (0.2-1.3) mg/dL AST 43 H (14-36) U/L ALT 26 (9-52) U/L Alkaline Phosphatase 108 (38-126) U/L Total Creatine Kinase (30-135) U/L CK-MB (CK-2) (0.0-2.4) ng/mL CK-MB (CK-2) Rel Index Troponin I (0.000-0.034) ng/mL Total Protein 8.0 (6.3-8.2) g/dL Albumin 4.7 (3.5-5.0) g/dL Urine Color Yellow Urine Appearance Clear (Clear) Urine pH 6.0 (5.0-8.0) Ur Specific [place] 1.014 (1.001-1.035) Urine Protein Negative (Negative) Urine Glucose (UA) Negative (Negative) Urine Ketones Negative (Negative) Urine Blood Negative (Negative) Urine Nitrite Negative (Negative) Urine Bilirubin Negative (Negative) Urine Urobilinogen <2.0 (<2.0) mg/dL Ur Leukocyte Esterase Trace H (Negative) Urine RBC 1 (0-5) /hpf Urine WBC 6 H (0-5) /hpf Ur Squamous Epith Cells 2 (0-4) /hpf Urine Bacteria Rare H (None) /hpf Hyaline Casts 1 (0-2) /lpf Urine Mucus Rare H (None) /hpf - NIH Stroke Scale 1a. Level of Consciousness: (0) alert 1b. LOC Questions: (0) answers correctly 1c. LOC Commands: (0) performs tasks correctly 2. Best Gaze: (0) normal 3. Visual: (0) no visual loss 4. Facial Palsy: (1) minor paralysis 5a. Motor Arm Left: (0) no drift 5b. Motor Arm Right: (0) no drift 6a. Motor Leg Left: (1) drift 6b. Motor Leg Right: (1) drift 7. Limb Ataxia: (0) absent 8. Sensory: (0) normal 9. Best Language: (0) no aphasia 10. Dysarthria: (1) mild/moderate dysarthria 11. Extinction/Inattention: (0) no abnormality - Medical Decision Making 63-year-old female patient presents to the emergency department today for evaluation of left-sided facial droop, tongue numbness, and slurred speech. Symptoms started yesterday around 3 PM in the afternoon. Physical examination did reveal left-sided facial palsy with forehead and left eye involvement. Remainder of neuro exam was unremarkable. Labs reviewed and were unremarkable. EKG showed normal sinus rhythm. CT brain showed no acute abnormalities. 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 This is further supported by recent left ear surgery. My attending Dr. Winchester was in to see and evaluate the patient, he agrees with this diagnosis. We'll start antivirals and steroids. She is instructed to obtain artificial tears and to tape her eye shut at night to prevent corneal damage. She is instructed to follow-up with ears, nose, and throat specialist for further evaluation as soon as possible. Return parameters were discussed in detail. She verbalizes understanding and agrees with this plan. - Radiology Data Radiology results: report reviewed, image reviewed CT brain without contrast was obtained. Report was reviewed in its entirety. Impression by Dr. Yeh shows cerebral atrophy. No acute intracranial abnormality. - EKG Data -: EKG Interpreted by Me 10/18/18 19:43 EKG obtained at 1836 shows normal sinus rhythm with ventricular rate of 69, GA interval 152, QRS duration 82, QTc 416, QTC 445. No evidence of ST elevation or depression. Past Medical History Past Medical History: Asthma, GERD/Reflux, Hyperlipidemia, Hypertension, Osteoarthritis (OA) Additional Past Medical History / Comment(s): pt states has current cold symptoms, antibiotics and steroid for ear infection and wheezing History of Any Multi-Drug Resistant Organisms: None Reported Past Surgical History: Appendectomy, Cholecystectomy, Hysterectomy, Joint Replacement, Orthopedic Surgery Additional Past Surgical History / Comment(s): Total L knee arthroplasty. THROAT NODULE REMOVED, chaz arthroscopy shoulders Past Anesthesia/Blood Transfusion Reactions: No Reported Reaction Additional Past Anesthesia/Blood Transfusion Reaction / Comment(s): . Past Psychological History: Anxiety Smoking Status: Former smoker Past Alcohol Use History: Daily Past Drug Use History: None Reported - Past Family History Sister(s) Family Medical History: Cancer Additional Family Medical History / Comment(s): breast ca Mother Family Medical History: Cancer, Pulmonary Embolus Additional Family Medical History / Comment(s): colon Father Family Medical History: Cancer Additional Family Medical History / Comment(s): bladder Course Vital Signs 10/18/18 10/18/18 10/18/18 18:07 19:46 21:49 Temperature 97.5 F L 98 F Pulse Rate 93 69 75 Respiratory 20 18 18 Rate Blood Pressure 159/108 125/79 124/81 O2 Sat by Pulse 96 95 97 Oximetry Disposition Clinical Impression: Jones's palsy Disposition: HOME SELF-CARE Condition: Good Instructions (If sedation given, give patient instructions): Jones Palsy (ED) Additional Instructions: Complete steroid and antiviral medication and full. Follow-up with your ears, nose, throat specialist for further evaluation as soon as possible. Return to the emergency department for any new, worsening, or concerning symptoms. Prescriptions: predniSONE 50 mg PO DAILY #5 tab valACYclovir HCL [Valacyclovir] 1,000 mg PO TID #21 tab Is patient prescribed a controlled substance at d/c from ED?: No Referrals: Ashlyn Salazar MD [Primary Care Provider] - 1-2 days Time of Disposition: 21:26
[2018-10-18 19:40] LABS: Creatine Kinase MB 0.8 ng/mL (0.0-2.4); Troponin I <0.012 ng/mL (0.000-0.034)
[2018-10-18 19:46] VITALS: RESP 18
--- NOTE | 2018-10-18 19:52 | CT ---
EXAMINATION TYPE: CT brain wo con DATE OF EXAM: 10/18/2018 COMPARISON: None HISTORY: Slurred speech and facial drooping. CT DLP: 1103.4 mGycm Automated exposure control for dose reduction was used. FINDINGS: There is cerebral cortical atrophy. There is no mass effect nor midline shift. There is no sign of in tracranial hemorrhage. Calvarium is intact. Sella turcica appears normal. IMPRESSION: CEREBRAL ATROPHY. NO ACUTE INTRACRANIAL ABNORMALITY.
[2018-10-18] MEDS ORDERED: predniSONE 50 MG TAB PO STA (21:25)
[2018-10-18] MEDS ORDERED: valACYclovir 500 MG TAB PO STA (21:27)
[2018-10-18 21:31] LABS: Appearance,Urine Clear (Clear); Bacteria,Urine Rare /hpf; Bilirubin,Urine Negative (Negative); Blood,Urine Negative (Negative); Color,Urine Yellow; Glucose,Urine (UA) Negative (Negative); Hyaline Casts,Urine 1 /lpf (0-2); Ketones,Urine Negative (Negative); Leukocyte Esterase,Urine Trace (Negative); Mucus,Urine Rare /hpf; Nitrite,Urine Negative (Negative); Protein,Urine Negative (Negative); RBC,Urine 1 /hpf (0-5); Specific Gravity,Urine 1.014 (1.001-1.035); Squamous Epithelial Cell,Urine 2 /hpf (0-4); Urobilinogen,Urine <2.0 mg/dL (<2.0); WBC,Urine 6 /hpf (0-5)
[2018-10-18 21:51] VITALS: BP 124/81; PULSE 75; TEMP 98
== END 2018-10-18 21:49 | disposition home or self-care (01) ==
LOC: EC 18:03
DX: G51.0 Bell's palsy (principal); J45.909 Unspecified asthma, uncomplicated; K21.9 Gastro-esophageal reflux disease without esophagitis; E78.5 Hyperlipidemia, unspecified; I10 Essential (primary) hypertension; M19.90 Unspecified osteoarthritis, unspecified site; F41.9 Anxiety disorder, unspecified; Z79.1 Long term (current) use of non-steroidal anti-inflammatories (NSAID); Z79.890 Hormone replacement therapy; Z79.899 Other long term (current) drug therapy; Z87.891 Personal history of nicotine dependence; Z96.652 Presence of left artificial knee joint
CPT/HCPCS: 36415; 93005; 80053; 82550; 82553; 84484; 85025; 85610; 85730; 81001; 70450; 99284; J7512

== ENCOUNTER → 2019-01-07 | Outpatient (CLI) | payer OTHER ==
--- NOTE | 2019-01-07 15:40 | XR ---
EXAMINATION TYPE: XR lumbar spine 2 or 3V DATE OF EXAM: 01/07/2019 COMPARISON: None HISTORY: Strain of lower back TECHNIQUE: Three-view lumbar spine FINDINGS: There 5 lumbar-type vertebral bodies. Pedicles are intact. Disc space narrowing is present L2-3, L3-4, L4-5, L5-S1. Vacuum disc phenomenon is present to these levels. Vertebral body heights ar e preserved. Mild scoliosis is present with convexity to the right centered at L3. IMPRESSION: 1. Degenerative disc changes and vacuum disc phenomenon. 2. Mild scoliosis
== END ==
LOC: RADXRMAIN 15:06
PROVIDERS: ATTEND Emergency Medicine
DX: M51.36 Other intervertebral disc degeneration, lumbar region (principal); M41.86 Other forms of scoliosis, lumbar region
CPT/HCPCS: 72100

== ENCOUNTER → 2019-01-28 | Outpatient (CLI) | payer OTHER ==
--- NOTE | 2019-01-28 10:20 | US ---
EXAMINATION TYPE: US venous doppler duplex LE RT DATE OF EXAM: 01/28/2019 10:01 AM COMPARISON: NONE CLINICAL HISTORY: S39.012D Strain of muscle, fascia and tendon of lo. Edema and cramping right leg SIDE PERFORMED: right TECHNIQUE: The lower extremity deep venous system is examined utilizing real time linear array sonog felice with graded compression, doppler sonography and color-flow sonography. VESSELS IMAGED: External Iliac Vein (EIV) Common Femoral Vein Deep Femoral Vein Greater Saphenous Vein * Femoral Vein Popliteal Vein Small Saphenous Vein * Proximal Calf Veins (* superficial vessels) Grayscale, color doppler, spectral doppler imaging performed of the deep veins of the right lower ext remity. There is normal flow, compressibility, vascular waveforms. Right Leg: No evidence of DVT IMPRESSION: No sonographic evidence of deep venous thrombosis within the right lower extremity.
== END | disposition home or self-care (01) ==
LOC: RADUSWWP 09:38
PROVIDERS: ATTEND Emergency Medicine
DX: S39.012A Strain of muscle, fascia and tendon of lower back, initial encounter (principal)

== ENCOUNTER → 2019-01-30 | Outpatient (CLI) | payer OTHER ==
--- NOTE | 2019-01-30 14:15 | MR ---
EXAMINATION TYPE: MR lumbar spine wo con DATE OF EXAM: 01/30/2019 COMPARISON: None HISTORY: Strain of muscle, fascia and tendon CONTRAST: 0 mL intravenous Gadavist. TECHNIQUE: Multiplanar, multisequence images of the lumbar spine were acquired. FINDINGS: L5-S1: Loss of disc height is present. Disc desiccation is present. Facet hypertrophy is present with some posterior lateral thecal sac compression. No spinal canal stenosis present. Disc bulging is mod erate anterior thecal sac flattening. No spinal canal stenosis is present. The bilateral foramen. Mod erate to severe foraminal narrowing. L4-L5: Broad-based disc bulge is present with anterior thecal sac flattening. Since a moderate size s ubligamentous disc extension extends superiorly of the central region with anterior thecal sac compre ssion. No AP spinal canal stenosis. Neural foramen are patent. L3-L4: Disc desiccation is present. Some mild narrowing of disc height may be present. No spinal fernie l stenosis present. There may be some minimal left paracentral disc bulge with mild anterior thecal s ac compression. L2-L3: Mild disc bulge has mild anterior thecal sac compression. No AP spinal canal stenosis present. Neural foramen are patent. Disc desiccation loss of disc height is present this level L1-L2: No significant disc bulge or disc herniation. No spinal canal stenosis. No foraminal stenosi s. T12-L1: No significant disc bulge or disc herniation. No spinal canal stenosis. No foraminal stenos is. IMPRESSION: 1. 1. Moderate size central disc herniation L4-5 posterior to the L4 vertebral level. 2. Disc desiccation L2-3 through L5-S1. 3. Facet degenerative change lower lumbar spine. 4. Foraminal stenosis moderate to severe at L5-S1
== END | disposition home or self-care (01) ==
LOC: RADMRIMAIN 12:52
PROVIDERS: ATTEND Emergency Medicine
DX: S39.012D Strain of muscle, fascia and tendon of lower back, subsequent encounter (principal); M48.07 Spinal stenosis, lumbosacral region; M51.86 Other intervertebral disc disorders, lumbar region; M51.36 Other intervertebral disc degeneration, lumbar region; M51.37 Other intervertebral disc degeneration, lumbosacral region; M47.816 Spondylosis without myelopathy or radiculopathy, lumbar region
CPT/HCPCS: 72148

== ENCOUNTER → 2019-05-07 | Outpatient (CLI) | payer BC, MEDICARE ==
--- NOTE | 2019-05-07 15:56 | XR ---
EXAMINATION TYPE: XR wrist complete BILATERAL, XR hand complete bilateral DATE OF EXAM: 05/07/2019 CLINICAL HISTORY: Bilateral nontraumatic wrist pain and swelling TECHNIQUE: Frontal, lateral and oblique images of the bilateral wrists and hands were obtained. COMPARISON: 05/07/2019 FINDINGS: There is no acute fracture/dislocation evident in either wrist nor hand. Left: On the left there is redemonstration of a well-corticated old fracture deformity of the ulnar s tyloid is seen on the prior of 05/07/2019. There is osseous proliferative change of the carpometacarpal joints, particularly of the ulnar sided carpal bones. Degenerative osseous cysts are scattered throu ghout. Mild joint space narrowing and osseous proliferative change of the first carpometacarpal joint . Very mild positive ulnar variance. No suspicious osseous lesion nor malalignment. Very small osteophytes are seen of the distal interphalangeal joints with very minimal joint space na rrowing. No suspicious osseous lesion is seen. There is perhaps very mild osseous demineralization. Right: There is redemonstration of old healed fracture of the styloid process on the right. Calcifica tion of the triangular fibrocartilage. There is slight widening of the distal radial ulnar joint and sclerosis within the lunate bone. Some osseous cysts are seen as well as minimal degenerative change of the first metacarpal phalangeal joint. No scapholunate joint space widening. Carpal carpal intersp aces are maintained. Small osteophytes are seen of the distal interphalangeal joints, particularly of the second and fourt h joints. Deformity of the distal tuft of the fifth digit appears to be on the basis of prior osseous laceration or less likely fracture. There is very mild osseous demineralization throughout. IMPRESSION: 1. No acute fracture or dislocation within either wrist. 2. Slight sclerosis of the right lunate that can be seen in time box disease. MRI is recommended to e valuate the bone marrow. 3. Arthropathy of the wrist is mild to moderate bilaterally with osseous cyst and bony proliferative change. Distribution overall favors osteoarthritis. 4. Old fracture deformities of the bilateral ulnar styloid processes, calcification of the left trian gular fibrocartilage, and probable old laceration/fracture deformity of the distal tuft of the right fifth digit. 5. Very mild diffuse osseous demineralization.
== END | disposition home or self-care (01) ==
LOC: RADXRMAIN 15:25
PROVIDERS: ATTEND Family Medicine
DX: M19.041 Primary osteoarthritis, right hand (principal); M19.032 Primary osteoarthritis, left wrist; M19.031 Primary osteoarthritis, right wrist; S52.612S Displaced fracture of left ulna styloid process, sequela; M79.642 Pain in left hand

== ENCOUNTER 2020-04-01 15:13 | Emergency (ER) | payer MEDICARE ==
[2020-04-01 15:21] VITALS: TEMP 98.5
--- NOTE | 2020-04-01 16:12 | XR ---
EXAMINATION TYPE: XR knee complete RT DATE OF EXAM: 04/01/2020 COMPARISON: NONE HISTORY: Pain TECHNIQUE: Three views are submitted. FINDINGS: Severe narrowing of all tricompartment spaces. Small amount of fluid in the suprapatellar bursa with diffuse osteopenia. No acute fracture. IMPRESSION: 1. Severe arthritic changes.
[2020-04-01 16:34] LABS: Basophils # (A) 0.1 k/uL (0-0.2); Basophils % (A) 1 %; Eosinophils # (A) 0.5 k/uL (0-0.7); Eosinophils % (A) 3 %; HCT 40.3 % (34.0-46.0); HGB 13.1 gm/dL (11.4-16.0); Lymphocytes # (A) 2.3 k/uL (1.0-4.8); Lymphocytes % (A) 16 %; MCHC 32.6 g/dL (31.0-37.0); MCV 85.9 fL (80.0-100.0); Monocytes % (A) 7 %; Neutrophils # (A) 10.6 k/uL (1.3-7.7); Neutrophils % (A) 73 %; Platelet Count 203 k/uL (150-450); WBC 14.6 k/uL (3.8-10.6)
[2020-04-01 16:36] LABS: ALT 21 U/L (4-34); AST 36 U/L (14-36); African American GFR (CKD) >90 (>60 ml/min/1.73 sqM); Albumin 4.2 g/dL (3.5-5.0); Alkaline Phosphatase 127 U/L (38-126); Anion Gap 8 mmol/L; Blood Urea Nitrogen 15 mg/dL (7-17); C Reactive Protein 21.1 mg/L (<10.0); Calcium 9.9 mg/dL (8.4-10.2); Carbon Dioxide 23 mmol/L (22-30); Chloride 101 mmol/L (98-107); Glucose 105 mg/dL (74-99); Non-African American GFR(CKD) >90 (>60 ml/min/1.73 sqM); Potassium 4.3 mmol/L (3.5-5.1); Sodium 132 mmol/L (137-145); Total Bilirubin 0.8 mg/dL (0.2-1.3)
--- NOTE | 2020-04-01 16:58 | US ---
EXAMINATION TYPE: US venous doppler duplex LE RT DATE OF EXAM: 04/01/2020 4:17 PM COMPARISON: 01/28/2019 CLINICAL HISTORY: posterior knee pain. Patient states as she was walking she heard and felt a pop. N ot on blood thinners. No redness. No swelling. SIDE PERFORMED: Right TECHNIQUE: The lower extremity deep venous system is examined utilizing real time linear array sonog felice with graded compression, doppler sonography and color-flow sonography. VESSELS IMAGED: External Iliac Vein (EIV) Common Femoral Vein Deep Femoral Vein Greater Saphenous Vein * Femoral Vein Popliteal Vein Small Saphenous Vein * Proximal Calf Veins (* superficial vessels) Right Leg: Negative for DVT IMPRESSION: 1. No diagnostic evidence of DVT as visualized
[2020-04-01 17:15] LABS: Erythrocyte Sedimentation Rate 9 mm/hr (0-20)
[2020-04-01] MEDS ORDERED: LIDOCAINE 1% INJ 10MG/ML (20 ML MDV) SQ ONE (17:15)
[2020-04-01] MEDS ORDERED: MORPHINE SULFATE 4 MG/ML SYRINGE IM STA (17:48)
[2020-04-01] MEDS ORDERED: HYDROmorphone 0.5 MG/0.5 ML SYRINGE IM STA (19:32)
[2020-04-01 20:06] VITALS: RESP 16
[2020-04-01 20:12] LABS: Appearance,BF Cloudy; Color,BF Yellow; Nucleated Cells, Body Fluid 13500 /uL; RBC, Body Fluid 1300 /uL
[2020-04-01 20:16] LABS: Mononuclear WBC,Body Fluid 12 %; Polynuclear WBC,Body Fluid 88 %; Total Cells Counted,Body Fluid 100
[2020-04-01] MEDS ORDERED: ACET/COD 300 MG/30 MG STARTER PACK 6 TAB BTL PO STA (20:52)
--- NOTE | 2020-04-01 20:52 | ED ---
Lower Extremity Injury HPI <Kapil Valencia Stephanie - Last Filed: 04/01/20 21:14> - General Source: patient Mode of arrival: wheelchair Limitations: no limitations <Lolis Daugherty - Last Filed: 04/01/20 21:55> - General Chief Complaint: Extremity Injury, Lower Stated Complaint: swelling painful right leg Time Seen by Provider: 04/01/20 15:26 - History of Present Illness Initial Comments: 65-year-old female presenting today for chief complaint of right knee pain patient states she has had right knee pain and swelling denies redness denies fevers chills general malaise. Patient states it occurred while she was walking and she felt a pop. Patient denies coagulopathy patient denies experiencing thi s in the past. Patient has a distal coolness pallor of the extremity numbness or tingling. Remaining review of systems negative upon arrival patient appears uncomfortable patient has been able to weight-bear. Patient denies falls direct trauma. Denies calf pain or history of DVTs. patietn denies experiencing this in the past. Patietn appears uncomfortable but nontoxic on arrival. (Lolis Daugherty) - Related Data Home Medications Medication Instructions Recorded Confirmed Sertraline HCl [Zoloft] 100 mg PO DAILY 06/14/15 04/01/20 Montelukast Sodium [Singulair] 10 mg PO HS 07/31/16 04/01/20 amLODIPine BESYLATE/BENAZEPRIL 1 cap PO DAILY 04/23/17 04/01/20 [Lotrel 5-20 mg Capsule] Celecoxib [CeleBREX] 200 mg PO DAILY 10/18/18 04/01/20 Famotidine [Pepcid] 20 mg PO BID 10/18/18 04/01/20 Levothyroxine Sodium [Synthroid] 50 mcg PO AC-BRKFST 10/18/18 04/01/20 Metoprolol Tartrate [Lopressor] 12.5 mg PO DAILY 10/18/18 04/01/20 Rosuvastatin Calcium [Crestor] 5 mg PO DAILY 10/18/18 04/01/20 Baclofen [Lioresal] 10 mg PO HS PRN 04/01/20 04/01/20 Calcium Carbonate/Vitamin D3 1 tab PO TID 04/01/20 04/01/20 [Calcium 500-Vit D3 200 Tablet] Cyanocobalamin (Vitamin B-12) 6,000 mcg PO DAILY 04/01/20 04/01/20 [Vitamin B-12] [place]-3 Fatty Acids/Fish Oil 1 tab PO BID 04/01/20 04/01/20 [[place]-3 Fish Oil 1,200 mg Sfgl] Selenium 200 mcg PO DAILY 04/01/20 04/01/20 Allergies Allergy/AdvReac Type Severity Reaction Status Date / Time No Known Allergies Allergy Verified 04/01/20 19:03 Review of Systems ROS Other: All systems not noted in ROS Statement are negative. <Kapil Valencia - Last Filed: 04/01/20 21:14> ROS Other: All systems not noted in ROS Statement are negative. <Lolis Daugherty - Last Filed: 04/01/20 21:55> ROS Statement: Those systems with pertinent positive or pertinent negative responses have been documented in the HPI. Past Medical History Past Medical History: Asthma, GERD/Reflux, Hyperlipidemia, Hypertension, Osteoarthritis (OA) Additional Past Medical History / Comment(s): pt states has current cold symptoms, antibiotics and steroid for ear infection and wheezing History of Any Multi-Drug Resistant Organisms: None Reported Past Surgical History: Appendectomy, Cholecystectomy, Hysterectomy, Joint Replacement, Orthopedic Surgery Additional Past Surgical History / Comment(s): Total L knee arthroplasty. THROAT NODULE REMOVED, chaz arthroscopy shoulders Past Anesthesia/Blood Transfusion Reactions: No Reported Reaction Additional Past Anesthesia/Blood Transfusion Reaction / Comment(s): . Past Psychological History: Anxiety Smoking Status: Never smoker Past Alcohol Use History: Daily Past Drug Use History: None Reported - Past Family History Sister(s) Family Medical History: Cancer Additional Family Medical History / Comment(s): breast ca Mother Family Medical History: Cancer, Pulmonary Embolus Additional Family Medical History / Comment(s): colon Father Family Medical History: Cancer Additional Family Medical History / Comment(s): bladder <Lolis Daugherty - Last Filed: 04/01/20 21:55> General Exam Limitations: no limitations <Lolis Daugherty - Last Filed: 04/01/20 21:55> - General Exam Comments Initial Comments: General: The patient is awake and alert, in no distress, and does not appear acutely ill. Eye: Pupils are equal, round and reactive to light, extra-ocular movements are intact. No nystagmus. There is normal conjunctiva bilaterally. No signs of icterus. Musculoskeletal: upon inspection of the knees there is some soft tissue swelling over the right knee in comparison the left there is no redness. Patient is able to bend her knee roughly 25 before significant pain. Extensor mechanism intact no signs of anterior trauma. Normal ROM,of the left knee. Strength 5/5. Sensation intact proximl an distal to site. pain to palpation posteriorly. DP pulses equal bilaterally 2+. Neurological: A&O x 3. CN II-XII intact grossly, There are no obvious motor or sensory deficits. Coordination appears grossly intact. Speech is normal. Skin: Skin is warm and dry and no rashes or lesions are noted. No calf pain Psychiatric: Cooperative, appropriate mood & affect, normal judgment. (Lolis Daugherty) Course Vital Signs 04/01/20 04/01/20 04/01/20 15:18 16:50 17:28 Temperature 98.5 F Pulse Rate 62 72 Respiratory 18 16 18 Rate Blood Pressure 105/67 124/92 O2 Sat by Pulse 100 97 Oximetry 04/01/20 04/01/20 04/01/20 19:32 20:00 21:00 Temperature 98.5 F Pulse Rate 83 67 84 Respiratory 18 16 16 Rate Blood Pressure 118/85 121/80 O2 Sat by Pulse 97 98 95 Oximetry Procedures - Joint Aspiration/Injection Consent Obtained: written consent Indications: R/O septic arthritis Side of Body: right Joint Aspirated: knee Ultrasound Guidance: No Skin Prep: Chlorhexidine Local Anesthesia Used: Lidocaine 1% Amount of Anesthesia Used (mLs): 3 Needle Size Used: 18G Syringe Size Used: Other (35) Fluid Obtained: turbid Total Fluid Obtained (mls): 55 Patient Tolerated Procedure: well Complications: none <Kapil Valencia - Last Filed: 04/01/20 21:14> - [place] Protocol (Time Out) Procedure Performed:: right knee arthrocentesis Performing Provider: Kapil Valencia Nurse: Antonieta Nava Patient Identification (2 identifiers required): Chart, Verbal, Arm Band, Name, Birthdate Patient/Legal [employer] Internship has Confirmed: Identity, Site, Procedure, Consent Site: right knee Site Marked: Yes Site Verified With Patient/Guardian: Yes <Lolis Daugherty - Last Filed: 04/01/20 21:55> Medical Decision Making - Lab Data Result diagrams: 04/01/20 16:11 04/01/20 16:11 <Kapil Valencia - Last Filed: 04/01/20 21:14> - Lab Data Result diagrams: 04/01/20 16:11 04/01/20 16:11 <DatLolis Forbes - Last Filed: 04/01/20 21:55> - Medical Decision Making 65-year-old female with knee pain, warm swollen right knee. Patient has large effusion on exam. She had a mildly elevated white blood cell count and mildly elevated CRP. There was concern for septic arthritis. Arthrocentesis was performed in the emergency department under strict sterile precautions. Synovial fluid was obtained approximately 55 mL of cloudy synovial fluid. This was sent for cell count, Gram stain, culture, and crystals. 13,000 total nucleated cells. I did discuss case with Dr. Stuart, will evaluate the patient on an outpatient basis. This is an inflammatory arthritis. (Kapil Bhardwaj) US (-). XR (-) for fracture + for arthritis. given swelling warmth. tapped. No signs of infection. Patient case discussed with Dr. Valencia who consulted orthopedic business line controller physicial. Recommending discharge with otupatient f/u. Dr. valencia recommended immbolization during ambulating as we cannot r/o ligamentous injury as this pop occurred during walking. patient states she is establish [facility]opedic care at [facility] I said that she is recommended to follow-up with [facility] of she wishes to otherwise she may follow-up with Dr. Stuart in office. Patient verbalized understanding was discharged appearing well (Dona Daughertyantonella Forbes) - Lab Data Lab Results 04/01/20 04/01/20 04/01/20 Range/Units 16:11 16:11 17:59 WBC 14.6 H (3.8-10.6) k/uL RBC 4.70 (3.80-5.40) m/uL Hgb 13.1 (11.4-16.0) gm/dL Hct 40.3 (34.0-46.0) % MCV 85.9 (80.0-100.0) fL MCH 28.0 (25.0-35.0) pg MCHC 32.6 (31.0-37.0) g/dL RDW 13.0 (11.5-15.5) % Plt Count 203 (150-450) k/uL Neutrophils % 73 % Lymphocytes % 16 % Monocytes % 7 % Eosinophils % 3 % Basophils % 1 % Neutrophils # 10.6 H (1.3-7.7) k/uL Lymphocytes # 2.3 (1.0-4.8) k/uL Monocytes # 1.0 (0-1.0) k/uL Eosinophils # 0.5 (0-0.7) k/uL Basophils # 0.1 (0-0.2) k/uL ESR 9 (0-20) mm/hr Sodium 132 L (137-145) mmol/L Potassium 4.3 (3.5-5.1) mmol/L Chloride 101 (98-107) mmol/L Carbon Dioxide 23 (22-30) mmol/L Anion Gap 8 mmol/L BUN 15 (7-17) mg/dL Creatinine 0.52 (0.52-1.04) mg/dL Est GFR (CKD-EPI)AfAm >90 (>60 ml/min/1.73 sqM) Est GFR (CKD-EPI)NonAf >90 (>60 ml/min/1.73 sqM) Glucose 105 H (74-99) mg/dL Calcium 9.9 (8.4-10.2) mg/dL Total Bilirubin 0.8 (0.2-1.3) mg/dL AST 36 (14-36) U/L ALT 21 (4-34) U/L Alkaline Phosphatase 127 H (38-126) U/L C-Reactive Protein 21.1 H (<10.0) mg/L Total Protein 7.0 (6.3-8.2) g/dL Albumin 4.2 (3.5-5.0) g/dL Fluid Source Synovial Fluid Color Yellow Fluid Appearance Cloudy Fluid RBC 1300 /uL Fluid Nucleated Cells 85999 /uL Fluid Polynuclear WBCs 88 % Fluid Mononuclear WBCs 12 % Disposition <Kapil Valencia - Last Filed: 04/01/20 21:14> Is patient prescribed a controlled substance at d/c from ED?: No Time of Disposition: 20:52 <Lolis Daugherty Andrei - Last Filed: 04/01/20 21:55> Clinical Impression: Right knee pain Disposition: HOME SELF-CARE Condition: Good Instructions (If sedation given, give patient instructions): Knee Pain (ED) Additional Instructions: Please use medication as discussed. Please follow-up with orthopedic surgery in the next week. Please return to emergency room if the symptoms increase or worsen or for any other concerns. Referrals: Ashlyn Salazar MD [Primary Care Provider] - 1-2 days Aaron Mccoy DO [Doctor of Osteopathic Medicine] - 1-2 days
[2020-04-01 21:03] VITALS: BP 121/80; PULSE 84
== END 2020-04-01 21:00 | disposition home or self-care (01) ==
LOC: EC 15:13
DX: M25.561 Pain in right knee (principal); R22.41 Localized swelling, mass and lump, right lower limb; D72.829 Elevated white blood cell count, unspecified; R79.82 Elevated C-reactive protein (CRP); F41.9 Anxiety disorder, unspecified; M19.90 Unspecified osteoarthritis, unspecified site; J45.909 Unspecified asthma, uncomplicated; K21.9 Gastro-esophageal reflux disease without esophagitis; E78.5 Hyperlipidemia, unspecified; I10 Essential (primary) hypertension; Z79.899 Other long term (current) drug therapy; Z96.652 Presence of left artificial knee joint
CPT/HCPCS: 36415; 89060; 80053; 85652; 89050; 85025; 86140; 73562; 93971; 99284; 96372 ×2; 20610; J2270; J2001; J1170; 87070; 87205

== ENCOUNTER → 2020-04-27 | Outpatient (CLI) | payer MEDICARE | END | disposition home or self-care (01) | LOC: LABPAT 10:29 | PROVIDERS: ATTEND Orthopaedic Surgery | DX: Z01.812 Encounter for preprocedural laboratory examination (principal) | CPT/HCPCS: 87070 ==

== ENCOUNTER 2020-05-05 06:09 | Day surgery (SDC) | payer MEDICARE ==
[2020-04-29 11:25] VITALS: BMI 35.4
--- NOTE | 2020-05-04 17:47 | HP ---
HISTORY AND PHYSICAL DATE OF SURGERY: 05/05/2020 Bebe New is a 65-year-old patient seen with symptomatic right knee osteoarthritis. After having treatment options discussed with her, she elected to proceed with right total knee arthroplasty. Consent was obtained. Medical clearance was provided by Dr. Salazar. PAST MEDICAL HISTORY: Hypothyroidism, hypertension. PAST SURGICAL HISTORY: Carpal tunnel release, right knee arthroscopy, left total knee arthroplasty, bilateral shoulder arthroscopy. MEDICATIONS: Sertraline, Singulair, levothyroxine, Celebrex, Lotrel. ALLERGIES: None. SOCIAL HISTORY: She currently denies tobacco use. PHYSICAL EVALUATION RIGHT KNEE: Range of motion is -3/4-60. Mild effusion. Tenderness medial joint line. Crepitus medial patellofemoral compartments. Ligaments stable. Hip rotation without pain. Distal neurovascular exam is intact. RADIOGRAPHS: Of the right knee revealed severe osteoarthritic changes. IMPRESSION: 1. Right knee osteoarthritis. 2. Hypertension. 3. Hypothyroidism. PLAN: Right total knee arthroplasty. MMODL / IJN: [id number] /
[~2020-05-05 06:09] MED LIST changes: +ACETAMINOPHEN TAB 500 MG TAB PO ONE; +DEXAMETHASONE SOD PHOSPHATE 10 MG/ML 1 ML VIAL IV ONE; -HYDROmorphone 1 MG/ML 1 ML SYRINGE IVP PRN; -LACTATED RINGERS 1,000 ML IV SCH; -LIDOCAINE 1% 20 ML VIAL (10MG/ML) FOR IV START INTRADERMA PRN; +MELOXICAM 7.5 MG TAB PO ONE; +ONDANSETRON 4 MG/2 ML VIAL IVP ONE; -ONDANSETRON 4 MG/2 ML VIAL IVP PRN; +ROPIVACAINE 246.25 MG, EPINEPHrine 0.5 MG, KETOROLAC 30 MG, cloNIDine HCL/PF 80 MCG, WA... MISCELLANE ONE; +TRANEXAMIC ACID 1,000 MG in SODIUM CHLORIDE 0.9% 100 ML IVPB ONE; -ceFAZolin 2 GM in SODIUM CHLORIDE 0.9% 100 ML IVPB ONE
[2020-05-05] MEDS ORDERED: ACETAMINOPHEN TAB 500 MG TAB ONE (06:12)
[2020-05-05] MEDS: LACTATED RINGERS 1,000 ML IV SCH ×3 (06:54→21:26)
[2020-05-05] MEDS ORDERED: fentaNYL (PF) 50 MCG/ML 2 ML AMP ONE (07:23)
[2020-05-05] MEDS ORDERED: GLYCOPYRROLATE 0.2 MG/ML 2 ML VIAL ONE (07:23)
[2020-05-05] MEDS ORDERED: PROPOFOL 10 MG/ML 20 ML VIAL IV ONE (07:23)
[2020-05-05] MEDS ORDERED: TRANEXAMIC ACID 1,000 MG/10 ML VIAL ONE (07:23)
[2020-05-05] MEDS ORDERED: MIDAZOLAM 2 MG/2 ML VIAL ONE (07:23)
[2020-05-05] MEDS ORDERED: SODIUM CHLORIDE 0.9% 100 ML BAG ONE (07:23)
[2020-05-05] MEDS ORDERED: ePHEDrine SULFATE/0.9% NACL/PF 50 MG/5 ML SYRINGE IV ONE (07:23)
[2020-05-05] MEDS ORDERED: SUCCINYLCHOLINE CHLORIDE 100 MG/5 ML SYR IV ONE (07:23)
[2020-05-05] MEDS ORDERED: LIDOCAINE 1% INJ 10MG/ML (20 ML MDV) ONE (07:23)
[2020-05-05] MEDS ORDERED: ceFAZolin 1,000 MG in SODIUM CHLORIDE 0.9% 1,000 ML IRRIGATION ONE (07:35)
[2020-05-05] MEDS ORDERED: HYDROcodone/APAP 5-325MG 1 EACH TAB PO PRN (09:27)
[2020-05-05] MEDS ORDERED: ONDANSETRON 4 MG/2 ML VIAL IVP PRN (09:27)
[2020-05-05] MEDS ORDERED: NALOXONE 0.4 MG/ML 1 ML VIAL IV PRN (09:27)
[2020-05-05] MEDS ORDERED: HYDROmorphone 0.5 MG/0.5 ML SYRINGE IVP PRN ×2 (09:27)
--- NOTE | 2020-05-05 09:27 | P.OP ---
Date of Procedure: 05/05/20 Preoperative Diagnosis: Right knee osteoarthritis Postoperative Diagnosis: Right knee osteoarthritis Procedure(s) Performed: Right total knee arthroplasty Implants: 1. Depuy attune size 4 right cruciate retaining cemented femur 2. Depuy attune size 4 fixed bearing cemented tibial baseplate 3. Depuy attune size 4 fixed bearing cruciate retaining 8 mm polyethylene tibial insert 4. Depuy attune 35 mm all polyethylene cemented patella Anesthesia: GETA, regional (Adductor canal catheter), local Surgeon: Aaron Mccoy Career Portals Teacher #1: Jacinto Valenzuela Estimated Blood Loss (ml): 45 Pathology: other (Bone) Condition: stable Disposition: PACU Indications for Procedure: 65-year-old patient seen with symptomatic right knee osteoarthritis. After treatment options were discussed, she elected to proceed with total knee arth roplasty. Operative Findings: See description of procedure Description of Procedure: Patient was taken to the operative suite after having an adductor canal catheter placed by the department of anesthesia. Patient underwent a spinal anesthetic by the department of anesthesia. The spinal did not appear to be working well and therefore the patient was converted to a general anesthetic by the department of anesthesia. Patient was given preoperative IV intake antibiotics and TXA. A well-padded tourniquet was placed about the right lower extremity. The lower extremity was then prepped and draped in the normal sterile orthopedic fashion. The extremity was elevated, a tourniquet was insufflated to 300. A standard anterior incision was made sharply through skin. Dissection was taken down through the subcutaneous soft tissues down to the extensor mechanism. A medial arthrotomy was performed, patella was everted and knee was flexed. There was advanced osteoarthritis noted. I introduced my distal intramedullary femoral drill. I then introduced the distal femoral cutting jig. George ALONSO secured the cutting jig with 2 pins. I held retractors in position while George ALONSO performed the distal femoral resection through the guide area we now removed her distal femoral cutting guide. We now placed our 4-in-1 femoral cutting block and positioned and it was secured with 2 pins by George ALONSO while I held the block in position. The distal femoral finishing was now completed. A proximal tibial cutting guide was positioned. I held the guide in the appropriate position with both hands well George ALONSO inserted stabilizing pins into the guide. Proximal tibial cut was made. We now placed a trial femoral component into position, along with an appropriate size tibial tray and insert. We now took the knee through range of motion and had full extension good flexion and good overall soft tissue balance noted. The patella was everted and stabilized with 2 towel clips held by George ALONSO while I performed a flush with patellar quad tendon utilizing a fresh sawblade. We templated the patella, appropriate drill holes were made. An appropriate trial patella was positioned, knee was taken through full range of motion with the patella tracking very nicely. The trial patella was removed. Drill holes were made through the femoral component. All trial components were removed after marking off the appropriate rotation of the tibia. Retractors were now positioned along the proximal tibia. An appropriate keel punch was made with the appropriate size tibial guide by myself on George ALONSO assisted by holding retractors. At this point appropriate size implants were chosen and opened. The joint was irrigated copiously with pulse lavage mechanical irrigation. The posterior capsule was infiltrated with local analgesic. The wound was irrigated with pulse lavage mechanical irrigation. We mixed antibiotic methylmethacrylate. We placed the knee into flexion. We placed multiple retractors assisted by George ALONSO to expose the proximal tibia. Once the methyl methacrylate was ready, the tibial component was cemented into place removing any excess methylmethacrylate form by both myself and George ALONSO. The femoral component was cemented into place removing the removing any excess methylmethacrylate performed by both myself and George ALONSO. We then inserted the appropriate size polyethylene tibial insert. We made sure that it was locked into position. We took the knee into full extension, and then back in a flexion making sure we had removed any excess methylmethacrylate. The patellar component was then cemented down and secured with clamp. Excess methylmethacrylate removed. We kept the knee in full extension, patellar clamp in position until methylmethacrylate had hardened. Once it had hardened the patellar clamp was removed. The knee was taken through full range of motion. The patella tracked nicely. There was good soft tissue balancing. The tourniquet was now released. Additional hemostasis was achieved via electrocautery. A second gram of TXA was given. The wound again was irrigated with pulse lavage mechanical irrigation. The superficial soft tissues were infiltrated local analgesic. The extensor mechanism was repaired with Vicryl. We checked the repair with range of motion and it was stable. The subcutaneous soft tissues were repaired with Vicryl in layers. The skin was approximated with pernio/Dermabond. Sterile dressings were applied followed by loose web roll and Daerll bandage. The patient was transferred to a bed, and taken to recovery in stable and satisfactory condition. George ALONSO assisted with this complex procedure.
[2020-05-05] MEDS ORDERED: LACTATED RINGERS 1,000 ML IV ONE (09:42)
[2020-05-05] MEDS: HYDROmorphone 0.5 MG/0.5 ML SYRINGE IVP PRN ×4 (09:51→10:09)
[2020-05-05] MEDS ORDERED: ROPIVACAINE 0.2%-NS ON-Q PUMP 1,090 MG, EMPTY PAIN BALL 1 EACH MISCELLANE PRN (09:57)
--- NOTE | 2020-05-05 12:35 | XR ---
EXAMINATION TYPE: XR knee limited RT DATE OF EXAM: 05/05/2020 CLINICAL HISTORY: Postoperative evaluation Two views of the right knee are submitted. Identified are changes of total knee arthroplasty with femoral and tibial components appearing well seated. Postsurgical soft tissue changes are noted. Alignment is anatomic.
[2020-05-05] MEDS: HYDROcodone/APAP 5-325MG 1 EACH TAB PO PRN ×2 (12:37→18:57)
--- NOTE | 2020-05-05 12:38 | P.ANPRN ---
Procedure Note - Anesthesia - Nerve Block Performed Right Adductor Canal Time Out Performed: Yes (06:42) Date of Procedure: 05/05/20 Procedure Start Time: :42 Procedure Stop Time: 06:59 Location of Patient: PreOp Indication: Acute Post-Operative Pain, Requested by Surgeon (Dr Dorantes) Sedation Type: Sedate with meaningful contact maintained Preparation: Sterile Prep, Sterile Dressing Position: Supine Catheter: Indwelling Needle Types: Pajunk Needle Gauge: 21 Ultrasound used to visualize needle placement: Yes Ultrasound used to observe medication spread: Yes Injectate: 0.5% Ropivacaine (see comment for volume) (20cc) Blood Aspirated: No Pain Paresthesia on Injection Noted: No Resistance on Injection: Normal Image Stored and Saved: Yes Events: Uneventful and Well Tolerated
[2020-05-05] MEDS ORDERED: ACETAMINOPHEN TAB 325 MG TAB PO PRN (13:48)
--- NOTE | 2020-05-05 13:59 | P.CONS ---
History of Present Illness - Reason for Consult Consult date: 05/05/20 Requesting physician: Aaron Mccoy - Chief Complaint Medical management - History of Present Illness This is a pleasant 65 year old female who is postop day zero total right knee arthroplasty. Patient has a past medical history of hypertension, hyperlipidemia, osteoarthritis, chronic pain, hypothyroid, anxiety, GERD and asthma. Patient admits to right knee postsurgical pain, well controlled with current medications. Patient denies chest pain, shortness of breath, nausea, vomiting, chills, constipation, or diarrhea. Patient is resting in bed comfortably. Review of Systems A 14 point review of systems was assessed patient was only positive for those pertinent in HPI Past Medical History Past Medical History: Asthma, GERD/Reflux, Hyperlipidemia, Hypertension, Osteoarthritis (OA), Thyroid Disorder Additional Past Medical History / Comment(s): pt states has current cold symptoms, antibiotics and steroid for ear infection and wheezing History of Any Multi-Drug Resistant Organisms: None Reported Past Surgical History: Appendectomy, Cholecystectomy, Hysterectomy, Joint Replacement, Orthopedic Surgery Additional Past Surgical History / Comment(s): Total L knee arthroplasty. 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 Past Psychological History: Anxiety Additional Psychological History / Comment(s): . Smoking Status: Former smoker Past Alcohol Use History: Heavy Additional Past Alcohol Use History / Comment(s): Pt. states "couple beers a day, couple times a week" Will not drink prior to procedure. , quit smoking 1988, was only occasional smoker Past Drug Use History: Marijuana Additional Drug Use History / Comment(s): occasional use for back pain - Past Family History Sister(s) Family Medical History: Cancer Additional Family Medical History / Comment(s): breast ca Mother Family Medical History: Cancer, Pulmonary Embolus Additional Family Medical History / Comment(s): colon Father Family Medical History: Cancer Additional Family Medical History / Comment(s): bladder Medications and Allergies Home Medications Medication Instructions Recorded Confirmed Type Sertraline HCl [Zoloft] 100 mg PO DAILY 06/14/15 05/05/20 History Montelukast Sodium [Singulair] 10 mg PO HS 07/31/16 05/05/20 History amLODIPine BESYLATE/BENAZEPRIL 1 cap PO DAILY 04/23/17 05/05/20 History [Lotrel 5-20 mg Capsule] Celecoxib [CeleBREX] 200 mg PO DAILY 10/18/18 05/05/20 History Famotidine [Pepcid] 20 mg PO BID 10/18/18 05/05/20 History Levothyroxine Sodium [Synthroid] 50 mcg PO AC-BRKFST 10/18/18 05/05/20 History Metoprolol Tartrate [Lopressor] 12.5 mg PO DAILY 10/18/18 05/05/20 History Rosuvastatin Calcium [Crestor] 5 mg PO DAILY 10/18/18 05/05/20 History Calcium Carbonate/Vitamin D3 1 tab PO BID 04/01/20 05/05/20 History [Calcium 500-Vit D3 200 Tablet] [place]-3 Fatty Acids/Fish Oil 1 tab PO BID 04/01/20 05/05/20 History [[place]-3 Fish Oil 1,200 mg Sfgl] Acetaminophen [Tylenol] 325 mg PO Q4H PRN 04/29/20 05/05/20 History Albuterol Sulfate [Ventolin HFA] 1 - 2 puff INHALATION Q6H PRN 04/29/20 05/05/20 History HYDROcodone/APAP 7.5-325MG [[place] 1 tab PO Q6HR PRN 04/29/20 05/05/20 History 7.5-325] Allergies Allergy/AdvReac Type Severity Reaction Status Date / Time No Known Allergies Allergy Verified 05/05/20 06:28 Physical Exam Osteopathic Statement: *. No significant issues noted on an osteopathic structural exam other than those noted in the History and Physical/Consult. Vitals: Vital Signs Temp Pulse Pulse Resp BP Pulse Ox 05/05/20 11:34 81 16 130/85 97 05/05/20 11:18 81 16 130/78 97 05/05/20 11:02 76 16 143/88 97 05/05/20 10:30 78 16 137/76 97 05/05/20 10:15 78 16 139/85 96 05/05/20 10:03 77 16 137/88 96 05/05/20 09:45 82 16 105/63 98 05/05/20 09:44 97.2 F L 81 16 126/66 98 05/05/20 06:53 98.3 F 80 16 131/84 96 Intake and Output 05/04/20 05/05/20 05/05/20 22:59 06:59 14:59 Intake Total 300 751 Output Total 45 Balance 300 706 Intake: IV 300 751 Output: Estimated Blood Loss 45 Other: Weight 70.6 kg 70.6 kg General: [non toxic], [no distress], [appears at stated age] Derm: [warm], [dry] Head: [atraumatic], [normocephalic], [symmetric] Eyes: [EOMI], [no lid lag], [anicteric sclera] Mouth: [no lip lesion], [mucus membranes moist] Cardiovascular: [S1S2 reg], [no murmur], [positive posterior tibial pulse bilateral], Lungs: [CTA bilateral], [no rhonchi, no rales] , [no accessory muscle use] Abdominal: [soft], [ nontender to palpation], [no guarding], [no appreciable organomegaly] Ext: [no gross muscle atrophy], [no edema], [no contractures] right knee is wrapped with bandages secondary to surgery Neuro: [ CN II-XI grossly intact], [no focal neuro deficits] Psych: [Alert], [oriented], [appropriate affect] Assessment and Plan Assessment: 1. Postop day zero right knee total arthroplasty Orthopedic surgery recommendations appreciated Pain control provided PT/OT 2. Hypertension Restart Lotrel and metoprolol Monitor BP 3. Hypothyroid Restart levothyroxine 4. Hyperlipidemia Restart Crestor 5. GERD Restart Pepcid 6. Anxiety Restart Zoloft 7. Asthma Albuterol when necessary 9. 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 GI DVT prophylaxis Thank you kindly for this consult. Will continue follow. If any questions please don't hesitate to call. Greater than 30 minutes spent with patient. Greater than 50% [id number] time coordinating care and counseling patient. Patient is full code Anticipated discharge tomorrow Time with Patient: Greater than 30
[2020-05-05] MEDS ORDERED: [UNRECOGNIZED DRUG - OTHER] PO SCH (14:00)
[2020-05-05] MEDS ORDERED: OMEGA PO SCH (14:00)
[2020-05-05] MEDS ORDERED: METOPROLOL TARTRATE 12.5 MG TAB PO SCH (14:00)
[2020-05-05] MEDS ORDERED: FATTY ACIDS PO SCH (14:00)
[2020-05-05] MEDS ORDERED: FISH OIL PO SCH (14:00)
[2020-05-05] MEDS: HYDROmorphone 1 MG/ML 1 ML SYRINGE IVP PRN ×2 (15:29→21:30)
[2020-05-05] MEDS: FAMOTIDINE 20 MG TAB PO SCH (20:11)
[2020-05-05] MEDS: CALCIUM CARB-VIT D 500MG-200UN 1 EACH TAB PO SCH (20:11)
[2020-05-05] MEDS: ENOXAPARIN 30 MG/0.3 ML SYRINGE SQ SCH (20:11)
[2020-05-05] MEDS ORDERED: SENNOSIDES-DOCUSATE SODIUM 1 EACH TAB PO SCH (21:00)
[2020-05-05] MEDS ORDERED: MONTELUKAST 10 MG TAB PO SCH (21:00)
[2020-05-06] MEDS: HYDROcodone/APAP 5-325MG 1 EACH TAB PO PRN ×2 (03:57→09:37)
[2020-05-06] MEDS: LACTATED RINGERS 1,000 ML IV SCH (05:40)
[2020-05-06] MEDS ORDERED: LEVOTHYROXINE 50 MCG TAB PO SCH (06:30)
--- NOTE | 2020-05-06 07:13 | P.PN ---
Progress Note - Text The patient is status post right adductor canal catheter placement. The catheter was placed for postoperative pain control, status post total right arthroplasty. Ropivacaine 0.2% is infusing at 8 mLs per hour. The patient has no complaints of right lower extremity numbness or weakness. Patient's VAS score is 1- 2-10. Assessment: Patient's adductor canal catheter is in place and working appropriately. Plan: continue infusion and adjust it as needed.
[2020-05-06 07:20] LABS: Basophils # (A) 0.1 k/uL (0-0.2); Basophils % (A) 1 %; Eosinophils # (A) 0.1 k/uL (0-0.7); Eosinophils % (A) 1 %; HCT 34.2 % (34.0-46.0); HGB 10.8 gm/dL (11.4-16.0); Lymphocytes # (A) 1.9 k/uL (1.0-4.8); Lymphocytes % (A) 16 %; MCH 27.7 pg (25.0-35.0); MCHC 31.7 g/dL (31.0-37.0); MCV 87.4 fL (80.0-100.0); Mean Platelet Volume 8.7; Monocytes % (A) 8 %; Neutrophils # (A) 8.4 k/uL (1.3-7.7); Neutrophils % (A) 72 %; Platelet Count 171 k/uL (150-450); RBC 3.91 m/uL (3.80-5.40); RDW 13.3 % (11.5-15.5); WBC 11.7 k/uL (3.8-10.6)
[2020-05-06 07:55] LABS: African American GFR (CKD) >90 (>60 ml/min/1.73 sqM); Anion Gap 6 mmol/L; Blood Urea Nitrogen 8 mg/dL (7-17); Carbon Dioxide 28 mmol/L (22-30); Chloride 103 mmol/L (98-107); Glucose 109 mg/dL (74-99); Non-African American GFR(CKD) >90 (>60 ml/min/1.73 sqM); Potassium 4.1 mmol/L (3.5-5.1); Sodium 137 mmol/L (137-145)
[2020-05-06 07:58] VITALS: BP 137/87; PULSE 69; RESP 19; TEMP 98.3
--- NOTE | 2020-05-06 08:11 | P.PN ---
Subjective Progress Note Date: 05/06/20 Principal diagnosis: Medical management Patient seen and examined at bedside. Patient is tolerating diet well. Patient's right lower extremity pain is minimal. She denies chest pain, shortness of breath, nausea, vomiting, fevers, or chills. Patient is doing well. Laboratory data revealed a slightly elevated white blood cell count 11.7 likely reactive status post surgery. Objective - Vital Signs Vital signs: Vital Signs Temp 98.3 F 05/06/20 07:00 Pulse 69 05/06/20 07:00 Resp 19 05/06/20 07:00 BP 137/87 05/06/20 07:00 Pulse Ox 93 L 05/06/20 07:00 Intake & Output 05/05/20 05/06/20 05/06/20 18:59 06:59 18:59 Intake Total 751 Output Total 45 Balance 706 Weight 70.6 kg Intake: IV 751 Output: Estimated Blood Loss 45 Other: Voiding Method Toilet # Voids 2 - Exam General: [non toxic], [no distress], [appears at stated age] Derm: [warm], [dry] Head: [atraumatic], [normocephalic], [symmetric] Eyes: [EOMI], [no lid lag], [anicteric sclera] Mouth: [no lip lesion], [mucus membranes moist] Cardiovascular: [S1S2 reg], [no murmur], [positive posterior tibial pulse bilateral], Lungs: [CTA bilateral], [no rhonchi, no rales] , [no accessory muscle use] Abdominal: [soft], [ nontender to palpation], [no guarding], [no appreciable organomegaly] Ext: [no gross muscle atrophy], [no edema], [no contractures] right knee is wrapped Neuro: [ CN II-XI grossly intact], [no focal neuro deficits] Psych: [Alert], [oriented], [appropriate affect] - Labs CBC & Chem 7: 05/06/20 06:27 05/06/20 06:27 Labs: Abnormal Lab Results - Last 24 Hours (Table) 05/06/20 05/06/20 Range/Units 06:27 06:27 WBC 11.7 H (3.8-10.6) k/uL Hgb 10.8 L (11.4-16.0) gm/dL Neutrophils # 8.4 H (1.3-7.7) k/uL Glucose 109 H (74-99) mg/dL Assessment and Plan Assessment: 1. Postop day #1 right knee total arthroplasty Orthopedic surgery recommendations appreciated Pain control provided PT/OT 2. Mild leukocytosis likely reactive secondary to surgery No evidence of infection at this time 3. Hypertension stable Lotrel and metoprolol Monitor BP 4. Hypothyroid levothyroxine 5. Hyperlipidemia Crestor 6. GERD Pepcid 7. Anxiety Zoloft 8. Asthma Albuterol when necessary 10. Chronic pain secondary to osteoarthritis and herniated disks in the lumbar spine Patient uses marijuana for her pain as an outpatient 11. GI DVT prophylaxis Anticipated discharge Today
[2020-05-06] MEDS: CALCIUM CARB-VIT D 500MG-200UN 1 EACH TAB PO SCH (08:18)
[2020-05-06] MEDS: FAMOTIDINE 20 MG TAB PO SCH (08:18)
[2020-05-06] MEDS: ENOXAPARIN 30 MG/0.3 ML SYRINGE SQ SCH (08:19)
[2020-05-06] MEDS ORDERED: METOPROLOL TARTRATE 12.5 MG TAB PO SCH (09:00)
[2020-05-06] MEDS ORDERED: SERTRALINE 100 MG TAB PO SCH (09:00)
[2020-05-06] MEDS ORDERED: MELOXICAM 7.5 MG TAB PO SCH (09:00)
[2020-05-06] MEDS ORDERED: lisinopriL 20 MG TAB PO SCH (09:00)
[2020-05-06] MEDS ORDERED: ATORVASTATIN 10 MG TAB PO SCH (09:00)
[2020-05-06] MEDS ORDERED: amLODIPine 5 MG TAB PO SCH (09:00)
[2020-05-06] MEDS ORDERED: CELECOXIB 200 MG PO SCH (09:00)
--- NOTE | 2020-05-06 11:03 | P.PN ---
Subjective Progress Note Date: 05/06/20 Principal diagnosis: Status post right total knee arthroplasty Patient evaluated at bedside today, she is resting comfortably. She's done very well with physical therapy. She denies any fever chills, nausea or vomiting. Objective - Vital Signs Vital signs: Vital Signs Temp 98.3 F 05/06/20 07:00 Pulse 69 05/06/20 07:00 Resp 19 05/06/20 07:00 BP 137/87 05/06/20 07:00 Pulse Ox 93 L 05/06/20 07:00 Intake & Output 05/05/20 05/06/20 05/06/20 18:59 06:59 18:59 Intake Total 751 Output Total 45 Balance 706 Weight 70.6 kg Intake: IV 751 Output: Estimated Blood Loss 45 Other: Voiding Method Toilet Toilet # Voids 2 - Exam Right lower extremity: Incision is clean, dry, and intact. The foam dressing is in good condition. There is minimal soft tissue swelling and ecchymosis surrounding the medial and lateral aspects of the incision. Calf is soft, no tenderness with palpation. Plantar flexion, dorsiflexion, EHL, FHL are intact. Sensory exam to light touch throughout the extremity is intact, dorsal pedis pulses 2+. - Labs CBC & Chem 7: 05/06/20 06:27 05/06/20 06:27 Labs: Abnormal Lab Results - Last 24 Hours (Table) 05/06/20 05/06/20 Range/Units 06:27 06:27 WBC 11.7 H (3.8-10.6) k/uL Hgb 10.8 L (11.4-16.0) gm/dL Neutrophils # 8.4 H (1.3-7.7) k/uL Glucose 109 H (74-99) mg/dL Assessment and Plan Assessment: Status post right total knee arthroplasty Plan: Pain control, plan for discharge home on oral medication GI and DVT prophylaxis, Eliquis 2.5 mg twice a day Wound care instructions discussed/icing and elevating techniques discussed Therapy and nursing after discharge Medical recommendations Plan for discharge home today Time with Patient: Less than 30
--- NOTE | 2020-05-06 11:09 | P.DS ---
Providers Date of admission: 05/05/2020 Expected date of discharge: 05/06/20 Attending physician: Aaron Mccoy Consults: 05/05/20 09:27 Consult Physician Routine Consulting Provider: Flex Ritchie Reason/Comments: Medical management Do you want consulting provider notified?: Yes Primary care physician: Ashlyn Salazar [facility] Course: Date of admission: 05/05/2020 Date of discharge: 05/06/2020 Admission diagnosis: Status post right total knee arthroplasty Discharge diagnosis: Same Attending physician: Dr. Mccoy Surgical procedures: Right total knee arthroplasty Brief history: Patient is a 65-year-old female with a history of progressive primary right hip osteoarthritis. At this point patient has failed conservative treatment measures and has opted to proceed with a elective right total knee arthroplasty. Hospital course: Details of patient's surgery can be found in operative report. Patient tolerated the procedure well and was subsequently transported to orthopedic floor. Patient's orthopeidc and medical care was provided daily. Patient had daily laboratory tests performed for evaluation of overall blood counts. Patient had daily physical therapy to include strengthening range of motion as well as education with walker ambulation. Patient was treated with Lovenox for their postoperative DVT prophylaxis during their inpatient stay. Patient was noted to have a relatively uneventful postoperative course. Patient reported satisfactory pain control with oral pain medications by postoperative day 0. Patient showed satisfactory progress with physical therapy. Patient moved steadily through the program and had no difficulty meeting the goals by postoperative day 1. Given patient's otherwise satisfactory course and having met physical therapy goals, plan is to discharge patient home on postoperative day 1. Discharge condition/disposition: Patient will be discharged home in stable condition. Discharge medications: Instructions are given on resumption of patient's normal daily medications per primary care recommendation, in addition patient will be prescribed Lynch 7.5 mg/325 mg, Eliquis 2.5 mg. Discharge instructions: 1. Wound care and infection precautions, keep incision dry and covered while showering, no lotions, creams, moisturizers. No soaking, tubs, pools, hottubs. Do not scrub over the incision. 2. Weight-bear as tolerated with walker / cane until follow-up. 3. Ice and elevate when necessary. Do not exceed 20 minutes per hour with ice pack. 4. Utilize compression sleeve until seen at first follow up appointment. 5. Visiting nursing care. 6. Home physical therapy including home CPM. 7. Pain meds and anticoagulants per prescription. 8. Pain medication has potential to cause constipation. Increase oral fluid and fiber intake. Contact primary care provider if you have not had a bowel movement within 48 hours after discharge 9. No anti-inflammatory medication until discussed at first post operative visit, this including Motrin, Aleve, Mobic, Diclofenac. 10. Follow up in office at 2 weeks postop with George Valenzuela PA-C 11. Follow up with your primary care doctor 7-10 days after discharge. 12. Contact [facility] with any questions, . Procedures: Right total knee arthroplasty Patient Condition at Discharge: Good Plan - Discharge Summary Discharge Rx Participant: Yes New Discharge Prescriptions: New Apixaban [Eliquis] 2.5 mg PO BID #60 tab HYDROcodone/APAP 7.5-325MG [Lynch 7.5] 1 - 2 each PO Q6HR PRN #42 tab PRN Reason: Pain Discontinued HYDROcodone/APAP 7.5-325MG [Lynch 7.5-325] 1 tab PO Q6HR PRN PRN Reason: Pain No Action Sertraline HCl [Zoloft] 100 mg PO DAILY Montelukast Sodium [Singulair] 10 mg PO HS amLODIPine BESYLATE/BENAZEPRIL [Lotrel 5-20 mg Capsule] 1 cap PO DAILY Metoprolol Tartrate [Lopressor] 12.5 mg PO DAILY Famotidine [Pepcid] 20 mg PO BID Rosuvastatin Calcium [Crestor] 5 mg PO DAILY Celecoxib [CeleBREX] 200 mg PO DAILY Levothyroxine Sodium [Synthroid] 50 mcg PO AC-BRKFST [place]-3 Fatty Acids/Fish Oil [[place]-3 Fish Oil 1,200 mg Sfgl] 1 tab PO BID Calcium Carbonate/Vitamin D3 [Calcium 500-Vit D3 200 Tablet] 1 tab PO BID Albuterol Sulfate [Ventolin HFA] 1 - 2 puff INHALATION Q6H PRN PRN Reason: Dyspnea Acetaminophen [Tylenol] 325 mg PO Q4H PRN PRN Reason: Pain Discharge Medication List Sertraline HCl [Zoloft] 100 mg PO DAILY 06/14/15 [History] Montelukast Sodium [Singulair] 10 mg PO HS 07/31/16 [History] amLODIPine BESYLATE/BENAZEPRIL [Lotrel 5-20 mg Capsule] 1 cap PO DAILY 04/23/17 [History] Celecoxib [CeleBREX] 200 mg PO DAILY 10/18/18 [History] Famotidine [Pepcid] 20 mg PO BID 10/18/18 [History] Levothyroxine Sodium [Synthroid] 50 mcg PO AC-BRKFST 10/18/18 [History] Metoprolol Tartrate [Lopressor] 12.5 mg PO DAILY 10/18/18 [History] Rosuvastatin Calcium [Crestor] 5 mg PO DAILY 10/18/18 [History] Calcium Carbonate/Vitamin D3 [Calcium 500-Vit D3 200 Tablet] 1 tab PO BID 04/01/20 [History] [place]-3 Fatty Acids/Fish Oil [[place]-3 Fish Oil 1,200 mg Sfgl] 1 tab PO BID 04/01/20 [History] Acetaminophen [Tylenol] 325 mg PO Q4H PRN 04/29/20 [History] Albuterol Sulfate [Ventolin HFA] 1 - 2 puff INHALATION Q6H PRN 04/29/20 [History] Apixaban [Eliquis] 2.5 mg PO BID #60 tab 05/06/20 [Rx] HYDROcodone/APAP 7.5-325MG [Lynch 7.5] 1 - 2 each PO Q6HR PRN #42 tab 05/06/20 [Rx] Follow up Appointment(s)/Referral(s): Jacinto Valenzuela, PAC [PHYSICIAN DA[employer]Y F[employer] MANAGER] - 05/21/20 1:30 pm [facility]Nurse [NON-STAFF] - (You should expect a phone call from [facility] by tomorrow early afternoon. Your first visit should be scheduled within 24 hours of discharge from the hospital.) Ashlyn Salazar MD [Primary Care Provider] - 05/25/20 11:20 am Activity/Diet/Wound Care/Special Instructions: *Please call [facility] once home to arrange delivery of Continuous Passive Motion (CPM) machine: [phone]. Orthopedic Discharge Instructions: 1. Wound care and infection precautions, keep incision dry and covered while showering, no lotions, creams, moisturizers. No soaking, pools, hot tubs. Do not scrub over incision. Okay to remove foam dressing on 05/15/2020 2. Weight-bear as tolerated with walker / cane until follow-up. 3. Ice and elevate when necessary. Do not exceed 20 minutes per hour with ice pack. 4. Utilize compression sleeve until seen at first follow up appointment. 5. Pain meds and anticoagulants per prescription. 6. Pain medication has potential to cause constipation. Increase oral fluid and fiber intake. Contact primary care provider if you have not had a bowel movement within 48 hours after discharge. 7. No anti-inflammatory medication until discussed at first post operative visit, this including Motrin, Aleve, Mobic, Diclofenac. 8. Follow up in office at 2 weeks postop with George Valenzuela PA-C 9. Follow up with your primary care doctor 7-10 days after discharge. 10. Contact [facility] with any questions, . Discharge Disposition: HOME WITH HOME HEALTH SERVICES
== END 2020-05-06 12:37 | disposition home health service (06) ==
LOC: OR 06:09 → 4SSUR 09:16 → OR 05-06 12:37
PROVIDERS: ATTEND Orthopaedic Surgery
DX: M17.11 Unilateral primary osteoarthritis, right knee (principal); M16.11 Unilateral primary osteoarthritis, right hip; D72.829 Elevated white blood cell count, unspecified; I10 Essential (primary) hypertension; E03.9 Hypothyroidism, unspecified; Z96.652 Presence of left artificial knee joint; Z98.890 Other specified postprocedural states; J45.909 Unspecified asthma, uncomplicated; K21.9 Gastro-esophageal reflux disease without esophagitis; E78.5 Hyperlipidemia, unspecified; M47.816 Spondylosis without myelopathy or radiculopathy, lumbar region; M51.26 Other intervertebral disc displacement, lumbar region; H66.90 Otitis media, unspecified, unspecified ear; Z90.49 Acquired absence of other specified parts of digestive tract; Z90.710 Acquired absence of both cervix and uterus; Z87.891 Personal history of nicotine dependence; F41.9 Anxiety disorder, unspecified; Z80.3 Family history of malignant neoplasm of breast; Z80.0 Family history of malignant neoplasm of digestive organs; Z80.52 Family history of malignant neoplasm of bladder; Z82.49 Family history of ischemic heart disease and other diseases of the circulatory system; Z79.891 Long term (current) use of opiate analgesic; Z79.1 Long term (current) use of non-steroidal anti-inflammatories (NSAID); Z79.890 Hormone replacement therapy; Z79.899 Other long term (current) drug therapy
CPT/HCPCS: 97110; 97161; 64448; 76942; 80048; 85025; 88300; 73560; 27447; C1776; C1713; J2250; J0171; J1100; J0690 ×2; J2405; J1885; J1650 ×2; J1170 ×2; J2795 ×2; J0735

== ENCOUNTER 2020-06-21 11:21 | Day surgery (SDC) | payer MEDICARE ==
[2020-06-18 11:59] VITALS: BMI 34.9
--- NOTE | 2020-06-20 10:48 | HP ---
HISTORY AND PHYSICAL REASON FOR ADMISSION: Surgery scheduled 06/21/2020. Bebe New is a 65-year-old patient seen with a right knee patellar tendon rupture with history of previous right total knee arthroplasty. I recommended open repair of the right knee patellar tendon rupture. I discussed the procedure, risks, complications, benefits, recovery. She was agreeable and consent was obtained. PAST MEDICAL HISTORY: Hypothyroidism, hypertension. PAST SURGICAL HISTORY: Carpal tunnel release, right knee arthroscopy, bilateral total knee arthroplasty, bilateral shoulder arthroscopy. MEDICATIONS: Levothyroxine, Singulair, Celebrex, Lotrel, Prevacid. ALLERGIES: None. SOCIAL HISTORY: She denies current tobacco use. PHYSICAL EXAMINATION: Evaluation of the right knee: She has well-healed incision. There is a defect along the patellar tendon which may extend to the medial retinaculum. She is unable to extend her knee. She has mild effusion. There is no erythema or evidence for infective process. Her distal neurovascular exam is intact. RADIOGRAPHS: Radiographs of the right knee revealed a stable appearing total knee arthroplasty with the patella in an Lizbet position. IMPRESSION: 1. Right knee patellar tendon rupture. 2. History of right total knee arthroplasty. 3. Hypertension. 4. Hypothyroidism. PLAN: Right knee open patellar tendon repair. Surgery is is 06/21/2020. MMODL / IJN: [id number] /
[2020-06-21] MEDS ORDERED: LACTATED RINGERS 1,000 ML IV ONE ×2 (11:46→17:08)
[2020-06-21] MEDS ORDERED: LIDOCAINE 1% (10MG/ML) FOR IV START INTRADERMA ONE (11:46)
[2020-06-21] MEDS ORDERED: ONDANSETRON 4 MG/2 ML VIAL ONE (12:16)
[2020-06-21] MEDS ORDERED: DEXAMETHASONE SOD PHOSPHATE 10 MG/ML 1 ML VIAL IV ONE (12:30)
[2020-06-21] MEDS ORDERED: ONDANSETRON 4 MG/2 ML VIAL IVP ONE (12:30)
[2020-06-21] MEDS ORDERED: fentaNYL (PF) 50 MCG/ML 2 ML AMP IV ONE (12:35)
[2020-06-21] MEDS ORDERED: MIDAZOLAM 2 MG/2 ML VIAL IV ONE (12:35)
[2020-06-21] MEDS ORDERED: SUCCINYLCHOLINE CHLORIDE 100 MG/5 ML SYR IV ONE (12:51)
[2020-06-21] MEDS ORDERED: PHENYLEPHRINE-0.9% NACL SYG 1 MG/10 ML SYRINGE ONE (12:51)
[2020-06-21] MEDS ORDERED: fentaNYL (PF) 50 MCG/ML 2 ML AMP ONE (12:51)
[2020-06-21] MEDS ORDERED: PROPOFOL 10 MG/ML 20 ML VIAL IV ONE (12:51)
[2020-06-21] MEDS ORDERED: GLYCOPYRROLATE 0.2 MG/ML 2 ML VIAL ONE (12:51)
[2020-06-21] MEDS ORDERED: NEOSTIGMINE 1 MG/ML 10 ML VIAL ONE (12:51)
[2020-06-21] MEDS ORDERED: ROCURONIUM 10 MG/ML (10 ML VIAL) IV ONE (12:51)
[2020-06-21] MEDS ORDERED: LIDOCAINE 1% INJ 10MG/ML (20 ML MDV) ONE (12:51)
[2020-06-21] MEDS ORDERED: ePHEDrine SULFATE/0.9% NACL/PF 50 MG/5 ML SYRINGE IV ONE (12:51)
[2020-06-21] MEDS ORDERED: MIDAZOLAM 2 MG/2 ML VIAL ONE (12:51)
--- NOTE | 2020-06-21 13:16 | P.ANPRN ---
Procedure Note - Anesthesia - Nerve Block Performed Right Adductor Canal Infusion Time Out Performed: Yes (1233) Date of Procedure: 06/21/20 Procedure Start Time: 12:34 Procedure Stop Time: 12:39 Location of Patient: PreOp Indication: Acute Post-Operative Pain, Requested by Surgeon Specifically requested for management of pain by DrMercedes: Aaron Mccoy Sedation Type: Sedate with meaningful contact maintained Preparation: Sterile Prep Position: Supine Catheter Depth at Skin (cm): 9 Catheter: Indwelling Needle Types: Pajunk Needle Gauge: 21 Ultrasound used to visualize needle placement: Yes Ultrasound used to observe medication spread: Yes Injectate: 0.5% Ropivacaine (see comment for volume) Blood Aspirated: No Pain Paresthesia on Injection Noted: No Resistance on Injection: Normal Image Stored and Saved: Yes Events: Uneventful and Well Tolerated
[2020-06-21] MEDS ORDERED: ceFAZolin 1,000 MG in SODIUM CHLORIDE 0.9% 1,000 ML IRRIGATION ONE (13:23)
[2020-06-21] MEDS ORDERED: NALOXONE 0.4 MG/ML 1 ML VIAL IV PRN (14:07)
[2020-06-21] MEDS ORDERED: HYDROmorphone 1 MG/ML 1 ML SYRINGE IVP PRN (14:07)
[2020-06-21] MEDS ORDERED: HYDROmorphone 0.5 MG/0.5 ML SYRINGE IVP PRN ×2 (14:07)
[2020-06-21] MEDS ORDERED: ONDANSETRON 4 MG/2 ML VIAL IVP PRN (14:07)
[2020-06-21] MEDS ORDERED: HYDROcodone/APAP 5-325MG 1 EACH TAB PO PRN (14:07)
--- NOTE | 2020-06-21 14:07 | P.OP ---
Date of Procedure: 06/21/20 Preoperative Diagnosis: Right knee patellar tendon rupture Postoperative Diagnosis: Right knee patellar tendon rupture Procedure(s) Performed: Repair right knee patellar tendon rupture Implants: 2Arthrex 3.5 swivel lock anchors Anesthesia: regional (adductor canal catheter), spinal Surgeon: Aaron Mccoy Supervising Floorperson #1: Jacinto Valenzuela Estimated Blood Loss (ml): 20 Pathology: none sent Condition: stable Disposition: PACU Indications for Procedure: 65-year-old lady who presented with right knee patellar tendon rupture with remote history of right total knee arthroplasty. I recommended open repair. I reviewed the procedure, risks, complications and recovery. Patient was agreeable and consent was obtained. Operative Findings: See description of procedure Description of Procedure: Patient was taken to the operative suite. Patient received preoperative IV antibiotics. Patient undergone insertion of an and adductor canal catheter by the department of anesthesia for postoperative pain management. The patient a spinal anesthetic by the department anesthesia. A well-padded tourniquet placed proximal right thigh. Right lower extremity was now prepped and draped in normal sterile fashion. The extremity elevated and tourniquet insufflated to 300. An incision was made with previous cicatrix sharply through skin. Once we had the subcu soft tissues fairly medially noted hemarthrosis. This was evacuated. There was a complete rupture of the patellar tendon off of the inferior pole the patella along with a small fragment of bone attached to the superior portion of the patellar tendon. There was also a large tear through the medial retinaculum and a smaller tear involving the lateral retinaculum. The hemarthrosis was evacuated. The wound was irrigated. A total knee arthroplasty components appear well seated and stable. I now debrided some of the edges of the tissue. I now made 2 drill holes through the distal pole of patella and inserted 2 Arthrex 3.5 swivel lock anchors which were preloaded with fiber tape. Good fixation was noted. I now whipstitched the patellar tendon and then sewed it down. We had good repair of the patellar tendon. I now repaired the medial and lateral retinacular tears utilizing #5 Ethibond. I now oversew the entire construct with 0 Vicryl. We checked the repair with a good since stable repair. The wound was again irrigated. The subcu soft tissues were approximated 2-0 Vicryl. The skin is proximal skin sukhdeep. Sterile dressings were applied. The tourniquet was released and immediate capillary refill noted. The patient was placed into a knee immobilizer. The patient was awakened and transferred to recovery stable condition. George ALONSO assisted with this procedure.
[2020-06-21] MEDS ORDERED: ROPIVACAINE 0.2%-NS ON-Q PUMP 1,090 MG, EMPTY PAIN BALL 1 EACH MISCELLANE PRN (14:30)
[2020-06-21] MEDS: HYDROmorphone 1 MG/ML 1 ML SYRINGE IVP ONE ×4 (14:36→14:58)
[2020-06-21] MEDS ORDERED: diphenhydrAMINE 50 MG/ML 1 ML VIAL IVP ONE (15:32)
[2020-06-21] MEDS: LACTATED RINGERS 1,000 ML IV SCH (17:41)
[2020-06-21 20:27] VITALS: RESP 16; TEMP 98.2
[2020-06-21] MEDS: HYDROcodone/APAP 5-325MG 1 EACH TAB PO PRN (21:04)
[2020-06-21] MEDS: ASPIRIN 325 MG TAB PO SCH (21:04)
[2020-06-22] MEDS: LACTATED RINGERS 1,000 ML IV SCH ×2 (00:43→14:21)
[2020-06-22 02:11] VITALS: BP 127/81; PULSE 91
[2020-06-22] MEDS: HYDROcodone/APAP 5-325MG 1 EACH TAB PO PRN ×2 (02:48→09:55)
[2020-06-22 06:36] LABS: Basophils # (A) 0.1 k/uL (0-0.2); Basophils % (A) 0 %; Eosinophils % (A) 0 %; HCT 36.1 % (34.0-46.0); HGB 11.3 gm/dL (11.4-16.0); Lymphocytes # (A) 1.6 k/uL (1.0-4.8); Lymphocytes % (A) 10 %; MCH 27.4 pg (25.0-35.0); MCHC 31.3 g/dL (31.0-37.0); MCV 87.6 fL (80.0-100.0); Mean Platelet Volume 8.3; Monocytes # (A) 0.8 k/uL (0-1.0); Monocytes % (A) 5 %; Neutrophils # (A) 12.4 k/uL (1.3-7.7); Neutrophils % (A) 83 %; Platelet Count 262 k/uL (150-450); RBC 4.13 m/uL (3.80-5.40); RDW 13.4 % (11.5-15.5)
[2020-06-22] MEDS: ASPIRIN 325 MG TAB PO SCH (07:08)
[2020-06-22] MEDS ORDERED: LEVOTHYROXINE 50 MCG TAB PO SCH (08:30)
--- NOTE | 2020-06-22 08:30 | P.PN ---
Progress Note - Text The patient is status post[ right] adductor canal catheter placement. The catheter was placed for postoperative pain control, status post total [ right] arthroplasty. Ropivacaine 0.2% is infusing at[ 8] mLs per hour. The patient has no complaints of[ right] lower extremity numbness or weakness. Patient's VAS score is[ 4-5]-10. Assessment: Patient's adductor canal catheter is in place and working appropriately. Plan: continue infusion and adjust it as needed.
[2020-06-22] MEDS ORDERED: ATORVASTATIN 10 MG TAB PO SCH (09:00)
[2020-06-22] MEDS ORDERED: NON FORMULARY DRUG (Omega-3 Fatty Acids/Fish Oil [Omega-3 Fish Oil 1,200 Mg Sfgl] 1 EACH C PO SCH (09:00)
[2020-06-22] MEDS ORDERED: METOPROLOL TARTRATE 12.5 MG TAB PO SCH (09:00)
[2020-06-22] MEDS ORDERED: amLODIPine 5 MG TAB PO SCH (09:00)
[2020-06-22] MEDS ORDERED: FAMOTIDINE 20 MG TAB PO SCH (09:00)
[2020-06-22] MEDS ORDERED: lisinopriL 20 MG TAB PO SCH (09:00)
[2020-06-22] MEDS ORDERED: SERTRALINE 100 MG TAB PO SCH (09:00)
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
--- NOTE | 2020-06-22 10:08 | P.PN ---
Subjective Progress Note Date: 06/22/20 Principal diagnosis: Status post right knee patellar tendon repair Patient evaluated at bedside today, she dressing her hospital chair. She's rather well at this time. She did have some increasing pain when she ambulated this morning. She's utilizing a knee immobilizer at this time. She denies any headaches, lightheadedness, chest pain, shortness of breath, fever or chills, nausea or vomiting. Objective - Vital Signs Vital signs: Vital Signs Temp 98.2 F 06/22/20 01:30 Pulse 91 06/22/20 01:30 Resp 16 06/22/20 01:30 BP 127/81 06/22/20 01:30 Pulse Ox 94 L 06/22/20 01:30 Intake & Output 06/21/20 06/22/20 06/22/20 18:59 06:59 18:59 Intake Total 751 1150 Output Total 20 Balance 731 1150 Weight 69.9 kg Intake: IV 751 Intake, IV Titration 850 Amount Lactated Ringers 1,000 ml 800 @ 100 mls/hr IV .Q10H KAREN Rx#:[id number] ceFAZolin 2 gm In Sodium 50 Chloride 0.9% 50 ml @ 100 mls/hr IVPB Q8H KAREN Rx#: [id number] Oral 300 Output: Estimated Blood Loss 20 Other: # Voids 1 - Exam Lower extremity: Incision is clean, dry, and intact. The foam dressing is in good condition. There is minimal soft tissue swelling and ecchymosis surrounding the medial and lateral aspects of the incision. Calf is soft, no tenderness with palpation. Plantar flexion, dorsiflexion, EHL, FHL are intact. Sensory exam to light touch throughout the extremity is intact, dorsal pedis pulses 2+. - Labs CBC & Chem 7: 06/22/20 05:35 Labs: Abnormal Lab Results - Last 24 Hours (Table) 06/22/20 Range/Units 05:35 WBC 15.0 H (3.8-10.6) k/uL Hgb 11.3 L (11.4-16.0) gm/dL Neutrophils # 12.4 H (1.3-7.7) k/uL Assessment and Plan Assessment: Status post right knee patellar tendon repair Plan: Pain control, continue current medication DVT prophylaxis, continue aspirin. Likely we'll discharge home on aspirin 81 mg twice a day versus 325 mg daily Wound care instructions discussed Weight-bear as tolerated with walker and knee immobilizer Ice and elevate often Medical recommendations Hospital discharged home today, we'll reassess later this afternoon Time with Patient: Less than 30
--- NOTE | 2020-06-22 13:05 | P.DS ---
Providers Date of admission: 06/21/2020 Expected date of discharge: 06/22/20 Attending physician: Aaron Mccoy Consults: 06/21/20 14:07 Consult Physician Routine Consulting Provider: Carlota Ag Consult Reason/Comments: Medical management Do you want consulting provider notified?: Yes Primary care physician: Ashlyn Salazar [facility] Course: Date of admission: 06/21/2020 Date of discharge: [06/22/2020] Admission diagnosis: Status post right knee patellar tendon repair Discharge diagnosis: Same Attending physician: Dr. Mccoy Surgical procedures: right knee patellar tendon repair Brief history: Patient is a 65-year-old female who had recently undergone a right total knee arthroplasty by Dr. Mccoy. She apparently injured the right knee last week and had difficult times with ambulation and extending the knee. It was determined she had injury to the right knee patellar tendon, she was scheduled for surgery on 06/21/2020. Hospital course: Details of patient's surgery can be found in operative report. Patient tolerated the procedure well and was subsequently transported to orthopedic floor. Patient's orthopeidc and medical care was provided daily. Patient had daily laboratory tests performed for evaluation of overall blood counts. Patient had daily physical therapy to include strengthening range of motion as well as education with walker ambulation. Patient was treated with aspirin for their postoperative DVT prophylaxis during their inpatient stay. Patient was noted to have a relatively uneventful postoperative course. Patient reported satisfactory pain control with oral pain medications by postoperative day 0. Patient showed satisfactory progress with physical therapy. Patient moved steadily through the program and had no difficulty meeting the goals by postoperative day 1. Given patient's otherwise satisfactory course and having met physical therapy goals, plan is to discharge patient [home] on postoperative day 1. Discharge condition/disposition: Patient will be discharged [home] in stable condition. Discharge medications: Instructions are given on resumption of patient's normal daily medications per primary care recommendation, in addition patient will be prescribed [place] 7.5mg/325 Mg, Aspirin 81 Mg. Discharge instructions: 1. Wound care and infection precautions, [keep incision dry and covered while showering], no lotions, creams, moisturizers. No soaking, tubs, pools, hottubs. Do not scrub over the incision. 2. Utilize knee immobilizer when weightbearing, no flexion of the knee 3. Ice and elevate when necessary. Do not exceed 20 minutes per hour with ice pack. 4. Utilize compression sleeve until seen at first follow up appointment. 5. Visiting nursing care. 6. Home physical therapy 7. Pain meds and anticoagulants per prescription. 8. Pain medication has potential to cause constipation. Increase oral fluid and fiber intake. Contact primary care provider if you have not had a bowel movement within 48 hours after discharge 9. No anti-inflammatory medication until discussed at first post operative visit, this including Motrin, Aleve, Mobic, Diclofenac 10. Follow up in office at 2 weeks postop with George Valenzuela PA-C 11. Follow up with your primary care doctor 7-10 days after discharge. 12. Contact [facility] with any questions, . Procedures: Right knee patellar tendon repair Patient Condition at Discharge: Good Plan - Discharge Summary Discharge Rx Participant: Yes New Discharge Prescriptions: New HYDROcodone/APAP 7.5-325MG [[place] 7.5] 1 - 2 each PO Q6HR PRN #42 tab PRN Reason: Pain Aspirin [Adult Low Dose Aspirin EC] 81 mg PO BID #60 tablet. No Action Sertraline HCl [Zoloft] 100 mg PO DAILY Montelukast Sodium [Singulair] 10 mg PO HS amLODIPine BESYLATE/BENAZEPRIL [Lotrel 5-20 mg Capsule] 1 cap PO DAILY Metoprolol Tartrate [Lopressor] 12.5 mg PO DAILY Famotidine [Pepcid] 20 mg PO BID Rosuvastatin Calcium [Crestor] 5 mg PO DAILY Celecoxib [CeleBREX] 200 mg PO DAILY Levothyroxine Sodium [Synthroid] 50 mcg PO AC-BRKFST [place]-3 Fatty Acids/Fish Oil [[place]-3 Fish Oil 1,200 mg Sfgl] 1 tab PO DAILY Calcium Carbonate/Vitamin D3 [Calcium 500-Vit D3 200 Tablet] 1 tab PO BID Albuterol Sulfate [Ventolin HFA] 1 - 2 puff INHALATION Q6H PRN PRN Reason: Dyspnea Acetaminophen [Tylenol] 325 mg PO Q4H PRN PRN Reason: Pain Ibuprofen [Motrin] 800 mg PO Q8H PRN PRN Reason: Pain Magnesium 25 mg PO HS Discharge Medication List Sertraline HCl [Zoloft] 100 mg PO DAILY 06/14/15 [History] Montelukast Sodium [Singulair] 10 mg PO HS 07/31/16 [History] amLODIPine BESYLATE/BENAZEPRIL [Lotrel 5-20 mg Capsule] 1 cap PO DAILY 04/23/17 [History] Celecoxib [CeleBREX] 200 mg PO DAILY 10/18/18 [History] Famotidine [Pepcid] 20 mg PO BID 10/18/18 [History] Levothyroxine Sodium [Synthroid] 50 mcg PO AC-BRKFST 10/18/18 [History] Metoprolol Tartrate [Lopressor] 12.5 mg PO DAILY 10/18/18 [History] Rosuvastatin Calcium [Crestor] 5 mg PO DAILY 10/18/18 [History] Calcium Carbonate/Vitamin D3 [Calcium 500-Vit D3 200 Tablet] 1 tab PO BID 04/01/20 [History] [place]-3 Fatty Acids/Fish Oil [[place]-3 Fish Oil 1,200 mg Sfgl] 1 tab PO DAILY 04/01/20 [History] Acetaminophen [Tylenol] 325 mg PO Q4H PRN 04/29/20 [History] Albuterol Sulfate [Ventolin HFA] 1 - 2 puff INHALATION Q6H PRN 04/29/20 [History] Ibuprofen [Motrin] 800 mg PO Q8H PRN 06/18/20 [History] Magnesium 25 mg PO HS 06/18/20 [History] Aspirin [Adult Low Dose Aspirin EC] 81 mg PO BID #60 tablet.dr 06/22/20 [Rx] HYDROcodone/APAP 7.5-325MG [[place] 7.5] 1 - 2 each PO Q6HR PRN #42 tab 06/22/20 [Rx] Follow up Appointment(s)/Referral(s): Jacinto Valenzuela PAC [PHYSICIAN SCOUT EXECUTIVE] - 07/07/20 2:10 pm [facility]Nurse [NON-STAFF] - ([phone]) Ashlyn Salazar MD [Primary Care Provider] - 07/01/20 1:00 pm Activity/Diet/Wound Care/Special Instructions: Orthopedic discharge instructions: 1. Keep incision covered while showering 2. Okay to remove bone dressing on 07/01/2020, okay to shower then over incision 3. Knee immobilizer on at all times when ambulating 4. No flexion of the knee 5. Ice and elevate often 6. Plan for follow[facility]up at [facility] 2 weeks Discharge Disposition: HOME WITH HOME HEALTH SERVICES
[2020-06-22] MEDS ORDERED: MONTELUKAST 10 MG TAB PO SCH (21:00)
== END 2020-06-22 14:55 | disposition home health service (06) ==
LOC: OR 11:21 → 4SSUR 16:48 → OR 06-22 14:55
PROVIDERS: ATTEND Orthopaedic Surgery
DX: S86.811A Strain of other muscle(s) and tendon(s) at lower leg level, right leg, initial encounter (principal); E03.9 Hypothyroidism, unspecified; I10 Essential (primary) hypertension; J45.909 Unspecified asthma, uncomplicated; K21.9 Gastro-esophageal reflux disease without esophagitis; M19.90 Unspecified osteoarthritis, unspecified site; F41.9 Anxiety disorder, unspecified; F32.9 Major depressive disorder, single episode, unspecified; D72.829 Elevated white blood cell count, unspecified; Z98.890 Other specified postprocedural states; Z86.69 Personal history of other diseases of the nervous system and sense organs; Z96.653 Presence of artificial knee joint, bilateral; Z79.890 Hormone replacement therapy; Z79.899 Other long term (current) drug therapy; Z79.1 Long term (current) use of non-steroidal anti-inflammatories (NSAID); Z90.49 Acquired absence of other specified parts of digestive tract; Z90.710 Acquired absence of both cervix and uterus; Z87.891 Personal history of nicotine dependence; Z80.3 Family history of malignant neoplasm of breast; Z80.0 Family history of malignant neoplasm of digestive organs; Z82.49 Family history of ischemic heart disease and other diseases of the circulatory system; Z80.52 Family history of malignant neoplasm of bladder; X58.XXXA Exposure to other specified factors, initial encounter
CPT/HCPCS: 27380; 97161; 64448; 76942; 85025; C1713 ×2; J2250; J1200; J1100; J2710; J0690 ×2; J2405; J2001; J3010; J1170; J2370; J0330; J2704; J2795

== ENCOUNTER 2020-08-12 16:09 | Day surgery (SDC) | payer MEDICARE ==
--- NOTE | 2020-08-11 18:33 | HP ---
HISTORY AND PHYSICAL DATE OF SURGERY: 08/12/2020 Bebe New is a 65-year-old patient seen with previous right total knee arthroplasty. She sustained a patellar tendon rupture and underwent repair of that on 06/21/2020. She was seen for followup in the office and noted to have a recurrent patellar tendon tear. I recommended open repair. I reviewed the procedure, risks, complications and recovery. She was agreeable. Consent was obtained. PAST MEDICAL HISTORY: Hypothyroidism, hypertension, gastroesophageal reflux disease. PAST SURGICAL HISTORY: Carpal tunnel release, bilateral total knee arthroplasty, bilateral shoulder arthroscopy. DAILY MEDICATIONS: Levothyroxine, Celebrex, Lotrel, Prevacid. ALLERGIES: NONE. SOCIAL HISTORY: She denies tobacco use. PHYSICAL EVALUATION: She has a well-healed incision. She to actively extend the knee. There is a defect in the inferior pole of the patella consistent with a rupture there. Her distal neurovascular exam is intact. RADIOGRAPHS: Radiographs of the right knee revealed stable-appearing total knee arthroplasty, superior riding patella consistent with patellar tendon tear. IMPRESSION: 1. Right knee patellar tendon tear. 2. Right total knee arthroplasty. 3. Hypertension. 4. Hypothyroidism. 5. Gastroesophageal reflux disease. PLAN: Right knee patellar tendon repair. MMODL / IJN: [id number] /
[2020-08-12] MEDS ORDERED: ONDANSETRON 4 MG/2 ML VIAL ONE (16:28)
[2020-08-12] MEDS ORDERED: LIDOCAINE 1% (10MG/ML) FOR IV START INTRADERMA ONE (16:41)
[2020-08-12] MEDS ORDERED: DEXAMETHASONE SOD PHOSPHATE 4 MG/ML 1 ML VIAL IV ONE (16:41)
[2020-08-12] MEDS ORDERED: LACTATED RINGERS 1,000 ML IV ONE (16:41)
[2020-08-12] MEDS ORDERED: ONDANSETRON 4 MG/2 ML VIAL IVP ONE (16:41)
[2020-08-12] MEDS ORDERED: MIDAZOLAM 2 MG/2 ML VIAL IV ONE (17:25)
[2020-08-12] MEDS ORDERED: NEOSTIGMINE 1 MG/ML 10 ML VIAL ONE (17:48)
[2020-08-12] MEDS ORDERED: MIDAZOLAM 2 MG/2 ML VIAL ONE (17:48)
[2020-08-12] MEDS ORDERED: ROCURONIUM 10 MG/ML (10 ML VIAL) IV ONE (17:48)
[2020-08-12] MEDS ORDERED: SUCCINYLCHOLINE CHLORIDE 100 MG/5 ML SYR IV ONE (17:48)
[2020-08-12] MEDS ORDERED: PROPOFOL 10 MG/ML 20 ML VIAL IV ONE (17:48)
[2020-08-12] MEDS ORDERED: KETOROLAC 15 MG/ML 1 ML VIAL ONE (17:48)
[2020-08-12] MEDS ORDERED: LIDOCAINE 1% INJ 10MG/ML (20 ML MDV) ONE (17:48)
[2020-08-12] MEDS ORDERED: fentaNYL (PF) 50 MCG/ML 2 ML AMP ONE (17:48)
[2020-08-12] MEDS ORDERED: GLYCOPYRROLATE 0.2 MG/ML 2 ML VIAL ONE (17:48)
[2020-08-12] MEDS ORDERED: ROPIVACAINE 5 MG/ML 30 ML VIAL ONE (17:48)
[2020-08-12] MEDS ORDERED: HYDROmorphone (PF) 1 MG/ML ONE (17:48)
[2020-08-12] MEDS ORDERED: DEXAMETHASONE SOD PHOSPHATE 4 MG/ML 1 ML VIAL ONE (17:48)
[2020-08-12] MEDS ORDERED: PHENYLEPHRINE 10 MG/ML VIAL ONE (17:48)
[2020-08-12] MEDS ORDERED: ceFAZolin 1,000 MG in SODIUM CHLORIDE 0.9% 1,000 ML IRRIGATION ONE (18:19)
[2020-08-12] MEDS ORDERED: HYDROmorphone 0.2 MG/1 ML SYRINGE IVP PRN (19:26)
[2020-08-12] MEDS ORDERED: ONDANSETRON 4 MG/2 ML VIAL IVP PRN (19:26)
[2020-08-12] MEDS ORDERED: NALOXONE 0.4 MG/ML 1 ML VIAL IV PRN (19:26)
[2020-08-12] MEDS ORDERED: HYDROmorphone 1 MG/ML 1 ML SYRINGE IVP PRN (19:26)
[2020-08-12] MEDS ORDERED: HYDROcodone/APAP 5-325MG 1 EACH TAB PO PRN (19:26)
[2020-08-12] MEDS ORDERED: HYDROmorphone 0.5 MG/0.5 ML SYRINGE IVP PRN (19:26)
--- NOTE | 2020-08-12 19:26 | P.OP ---
Date of Procedure: 08/12/20 Preoperative Diagnosis: Right knee patellar tendon rupture Postoperative Diagnosis: Right knee patellar tendon rupture Procedure(s) Performed: Right knee patellar tendon repair Implants: 24.75 Arthrex swivel lock anchors and 1-3.5 swivel lock anchor Anesthesia: daniela VILLALOBOS Surgeon: Aaron Mccoy Tractor Mechanic Apprentice #1: Jacinto Valenzuela Estimated Blood Loss (ml): 20 Pathology: none sent Condition: stable Disposition: PACU Indications for Procedure: 65-year-old patient was seen with probable right knee patellar tendon rupture history previous total knee arthroplasty and also history of previous repair of a patellar tendon rupture. I recommended repair. Patient was agreeable and consent was obtained. Operative Findings: see description of procedure Description of Procedure: The patient received a adductor canal block by the department of anesthesia. The patient received preoperative IV antibiotics. The patient was taken to the operative suite. The patient underwent a general anesthetic by the department of anesthesia. A well-padded tourniquet placed proximal right lower extremity. Right lower extremity prepped and draped in the normal sterile orthopedic fa shion. Extremity elevated and tourniquet insufflated to 300. Incision made over the previous cicatrix. We immediately encountered fluid which was evacuated. There was a recurrent rupture of the patellar tendon off of the inferior pole the patella. Residual suture limbs were debrided out. One of the previous 3.5 Arthrex anchors which was inserted into the inferior pole the patella had failed then pulled out. This was retrieved and removed. The other 3.5 swivel lock anchor in the inferior pole patella was intact however distally the suture had pulled through the soft tissue. The fiber tape there was cleaned off and saved. The implant was evaluated was found to be intact. I irrigated the joint out copiously with normal saline. I now inserted a 4.75 Arthrex swivel lock anchor into the field previous 3.5 mm area with good fixation noted. This was attached to a fiber tape. I now made a separate drill hole along the lateral aspect of the patella and inserted a 3.5 mm so lock anchor there with a fiber tape. I now prepared the rupture utilizing the tape and a free needle through good bites of distal tendon and capsular tissue. I oversewed this multiple times with the fiber tape it was reinforced superiorly as well. I now took the limbs of the fiber tape of the previous 3.5 anchor and I made a drill hole distally into the tibia. There was fiber tape limbs were passed through a 4.75 Arthrex anchor which is inserted into the distal tibia achieving fixation there as well. I now oversewed the area utilizing #5 Ethibond utilizing multiple simple interrupted sutures. We had a good tight repair. I checked the repair with interrupted 45 of flexion and was stable. The wound was irrigated. The subcutaneous soft tissues were approximated with 2-0 Vicryl. The skin was repaired with skin sukhdeep and skin glue. An Opteform dressing was placed over the incision site. The tourniquet was released and immediate capillary refill noted. I applied a knee immobilizer to the lower extremity. The patient was then awakened, transferred to a bed and recovery stable condition. George ALONSO assisted in all aspects of the procedure.
--- NOTE | 2020-08-12 19:33 | P.ANPRN ---
Procedure Note - Anesthesia - Nerve Block Performed Right Adductor Canal Single Time Out Performed: Yes Date of Procedure: 08/12/20 Procedure Start Time: 17:24 Procedure Stop Time: 17:30 Location of Patient: PreOp Indication: Acute Post-Operative Pain, Requested by Surgeon Sedation Type: Sedate with meaningful contact maintained Preparation: Sterile Prep Position: Supine Needle Types: Pajunk Needle Gauge: 21 Ultrasound used to visualize needle placement: Yes Ultrasound used to observe medication spread: Yes Blood Aspirated: No Pain Paresthesia on Injection Noted: No Resistance on Injection: Normal Image Stored and Saved: Yes Events: Uneventful and Well Tolerated (ropi .5% 20 cc plu dexamethasone 4mg)
[2020-08-12] MEDS: SODIUM CHLORIDE 0.9% 1,000 ML IV SCH (21:59)
[2020-08-12] MEDS: HYDROcodone/APAP 7.5-325MG 1 EACH TAB PO PRN (22:46)
[2020-08-13] MEDS: HYDROcodone/APAP 7.5-325MG 1 EACH TAB PO PRN ×2 (05:04→11:10)
[2020-08-13 06:58] LABS: Basophils % (A) 0 %; Eosinophils % (A) 0 %; HCT 40.2 % (34.0-46.0); HGB 13.3 gm/dL (11.4-16.0); Lymphocytes # (A) 1.2 k/uL (1.0-4.8); Lymphocytes % (A) 9 %; MCH 27.6 pg (25.0-35.0); MCV 83.7 fL (80.0-100.0); Mean Platelet Volume 8.3; Monocytes # (A) 0.4 k/uL (0-1.0); Monocytes % (A) 3 %; Neutrophils # (A) 11.6 k/uL (1.3-7.7); Neutrophils % (A) 87 %; Platelet Count 245 k/uL (150-450); RBC 4.81 m/uL (3.80-5.40); RDW 13.6 % (11.5-15.5); WBC 13.3 k/uL (3.8-10.6)
[2020-08-13 07:53] VITALS: BP 137/83; PULSE 95; RESP 16; TEMP 97.8
[2020-08-13] MEDS: SODIUM CHLORIDE 0.9% 1,000 ML IV SCH (08:44)
[2020-08-13] MEDS ORDERED: ENOXAPARIN 30 MG/0.3 ML SYRINGE SQ SCH (09:00)
--- NOTE | 2020-08-13 10:22 | P.PN ---
Subjective Progress Note Date: 08/13/20 Principal diagnosis: status post right knee patellar tendon repair Patient evaluated at bedside today, she is resting comfortably. She's utilizing her knee immobilizer. Her pain is well-controlled. She denies any headaches, lightheadedness, chest pain, shortness of breath, fever or chills. Objective - Vital Signs Vital signs: Vital Signs Temp 97.8 F 08/13/20 07:53 Pulse 95 08/13/20 07:53 Resp 16 08/13/20 07:53 BP 137/83 08/13/20 07:53 Pulse Ox 93 L 08/13/20 07:53 Intake & Output 08/12/20 08/13/20 08/13/20 18:59 06:59 18:59 Intake Total 751 100 Output Total 20 Balance 751 80 Weight 72.2 kg 72.2 kg Intake: IV 751 100 Output: Estimated Blood Loss 20 Other: Voiding Method Bedside Commode # Voids 1 - Exam Right lower extremity: Incision is clean, dry, and intact. The foam dressing is in good condition. There is minimal soft tissue swelling and ecchymosis surrounding the medial and lateral aspects of the incision. Calf is soft, no tenderness with palpation. Plantar flexion, dorsiflexion, EHL, FHL are intact. Sensory exam to light touch throughout the extremity is intact, dorsal pedis pulses 2+. - Labs CBC & Chem 7: 08/13/20 06:24 Labs: Abnormal Lab Results - Last 24 Hours (Table) 08/13/20 Range/Units 06:24 WBC 13.3 H (3.8-10.6) k/uL Neutrophils # 11.6 H (1.3-7.7) k/uL Assessment and Plan Assessment: Status post right knee patellar tendon repair Plan: Pain control, patient does have pain medication at home, she can resume this DVT prophylaxis, recommend aspirin 81 mg after discharge, she also has a set home Wound care instructions were discussed Icing and elevating techniques discussed Weightbearing restrictions discussed, discussion of use of knee immobilizer Plan for discharge home today Time with Patient: Less than 30
--- NOTE | 2020-08-13 10:28 | P.DS ---
Providers Date of admission: 08/12/2020 Expected date of discharge: 08/13/20 Attending physician: Aaron Mccoy Consults: 08/12/20 19:26 Consult Physician Routine Consulting Provider: Andre Sewell Consult Reason/Comments: Medical management Do you want consulting provider notified?: Yes Primary care physician: Ashlyn Salazar Hospital Course: Date of admission: 08/12/2020 Date of discharge: 08/13/2020 Admission diagnosis: Status post patellar tendon repair right knee Discharge diagnosis: Same Attending physician: Dr. Mccoy Surgical procedures: Patellar tendon repair right knee Brief history: Patient is a 65-year-old female who was evaluated in the outpatient setting by Dr. Mccoy for her right knee. She has a history of a right total knee arthroplasty that was done in May 2020, she then developed a rupture of the patellar tendon, she underwent initial surgery in June 2020. On her most recent follow-up was determined that repair had torn again, treatment options were discussed and she was scheduled for surgical repair of the patellar tendon on the right knee for 08/12/2020. Hospital course: Details of patient's surgery can be found in operative report. Patient tolerated the procedure well and was subsequently transported to orthopedic floor. Patient's orthopeidc and medical care was provided daily. Patient had daily laboratory tests performed for evaluation of overall blood counts. Patient had daily physical therapy to include strengthening range of motion as well as education with walker ambulation. Patient was treated with Lovenox for their postoperative DVT prophylaxis during their inpatient stay. Patient was noted to have a relatively uneventful postoperative course. Patient reported satisfactory pain control with oral pain medications by postoperative day 0. Patient showed satisfactory progress with physical therapy. Patient moved steadily through the program and had no difficulty meeting the goals by postoperative day 1. Given patient's otherwise satisfactory course and having met physical therapy goals, plan is to discharge patient home on postoperative day 1. Discharge condition/disposition: Patient will be discharged home in stable condition. Discharge medications: Instructions are given on resumption of patient's normal daily medications per primary care recommendation, in addition patient will be prescribed aspirin 81 mg. Discharge instructions: 1. Wound care and infection precautions, [keep incision dry and covered while showering], no lotions, creams, moisturizers. No soaking, tubs, pools, hottubs. Do not scrub over the incision. 2. Nonweightbearing right lower extremity, utilizing a walker and knee immobilizer when upright 3. Ice and elevate when necessary. Do not exceed 20 minutes per hour with ice pack. 4. Utilize compression sleeve until seen at first follow up appointment. 7. Pain meds and anticoagulants per prescription. 8. Pain medication has potential to cause constipation. Increase oral fluid and fiber intake. Contact primary care provider if you have not had a bowel movement within 48 hours after discharge 9. No anti-inflammatory medication until discussed at first post operative visit, this including Motrin, Aleve, Mobic, Diclofenac 11. Follow up with your primary care doctor 7-10 days after discharge. 12. Contact [facility] with any questions, . Procedures: Patellar tendon repair right knee Patient Condition at Discharge: Good Plan - Discharge Summary Discharge Rx Participant: Yes New Discharge Prescriptions: New Aspirin [Adult Low Dose Aspirin EC] 81 mg PO BID #60 tablet.dr Garcia Action Sertraline HCl [Zoloft] 100 mg PO DAILY Montelukast Sodium [Singulair] 10 mg PO HS amLODIPine BESYLATE/BENAZEPRIL [Lotrel 5-20 mg Capsule] 1 cap PO DAILY Metoprolol Tartrate [Lopressor] 12.5 mg PO DAILY Famotidine [Pepcid] 20 mg PO BID Rosuvastatin Calcium [Crestor] 5 mg PO DAILY Celecoxib [CeleBREX] 200 mg PO DAILY Levothyroxine Sodium [Synthroid] 50 mcg PO AC-BRKFST [place]-3 Fatty Acids/Fish Oil [[place]-3 Fish Oil 1,200 mg Sfgl] 1 tab PO DAILY Calcium Carbonate/Vitamin D3 [Calcium 500-Vit D3 200 Tablet] 1 tab PO BID Albuterol Sulfate [Ventolin HFA] 1 - 2 puff INHALATION Q6H PRN PRN Reason: Dyspnea Acetaminophen [Tylenol] 325 mg PO Q4H PRN PRN Reason: Pain Ibuprofen [Motrin] 800 mg PO Q8H PRN PRN Reason: Pain Magnesium 25 mg PO HS HYDROcodone/APAP 7.5-325MG [[place] 7.5] 1 - 2 each PO Q6HR PRN #42 tab PRN Reason: Pain Discharge Medication List Sertraline HCl [Zoloft] 100 mg PO DAILY 06/14/15 [History] Montelukast Sodium [Singulair] 10 mg PO HS 07/31/16 [History] amLODIPine BESYLATE/BENAZEPRIL [Lotrel 5-20 mg Capsule] 1 cap PO DAILY 04/23/17 [History] Celecoxib [CeleBREX] 200 mg PO DAILY 10/18/18 [History] Famotidine [Pepcid] 20 mg PO BID 10/18/18 [History] Levothyroxine Sodium [Synthroid] 50 mcg PO AC-BRKFST 10/18/18 [History] Metoprolol Tartrate [Lopressor] 12.5 mg PO DAILY 10/18/18 [History] Rosuvastatin Calcium [Crestor] 5 mg PO DAILY 10/18/18 [History] Calcium Carbonate/Vitamin D3 [Calcium 500-Vit D3 200 Tablet] 1 tab PO BID 04/01/20 [History] [place]-3 Fatty Acids/Fish Oil [[place]-3 Fish Oil 1,200 mg Sfgl] 1 tab PO DAILY 04/01/20 [History] Acetaminophen [Tylenol] 325 mg PO Q4H PRN 04/29/20 [History] Albuterol Sulfate [Ventolin HFA] 1 - 2 puff INHALATION Q6H PRN 04/29/20 [History] Ibuprofen [Motrin] 800 mg PO Q8H PRN 06/18/20 [History] Magnesium 25 mg PO HS 06/18/20 [History] HYDROcodone/APAP 7.5-325MG [[place] 7.5] 1 - 2 each PO Q6HR PRN #42 tab 06/22/20 [Rx] Aspirin [Adult Low Dose Aspirin EC] 81 mg PO BID #60 tablet. 08/13/20 [Rx] Follow up Appointment(s)/Referral(s): Jacinto Valenzuela PAC [PHYSICIAN HAND STRIPPER] - 2 Weeks Activity/Diet/Wound Care/Special Instructions: Patient requires a wheelchair in order to complete ADLS not able to be done with a walker or cane. Patient has a right knee patellar tendon rupture and is non- weight bearing on the right side for 8 weeks. Orthopedic Discharge Instructions: 1. Wound care and infection precautions, keep incision dry and covered while showering, no lotions, creams, moisturizers. No soaking, pools, hot tubs. Do not scrub over incision. Okay to remove foam dressing on 08/22/2020, keep incision dry and covered until first follow up 2. Nonweightbearing right lower extremity, utilize wheelchair or walker at all times. Utilize knee immobilizer when upright 3. Ice and elevate when necessary. Do not exceed 20 minutes per hour with ice pack. 4. Utilize compression sleeve until seen at first follow up appointment. 5. Pain meds and anticoagulants per prescription. 6. Pain medication has potential to cause constipation. Increase oral fluid and fiber intake. Contact primary care provider if you have not had a bowel movement within 48 hours after discharge. 7. No anti-inflammatory medication until discussed at first post operative visit, this including Motrin, Aleve, Mobic, Diclofenac. 8. Follow up in office at 2 weeks postop with George Valenzuela PA-C 9. Follow up with your primary care doctor 7-10 days after discharge. 10. Contact [facility] with any questions, . Discharge Disposition: HOME SELF-CARE
[2020-08-13] MEDS ORDERED: ACETAMINOPHEN TAB 325 MG TAB PO PRN (11:42)
[2020-08-13] MEDS ORDERED: IBUPROFEN 800 MG TAB PO PRN (11:42)
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
[2020-08-13] MEDS ORDERED: MAGNESIUM OXIDE 400 MG TAB PO SCH (21:00)
[2020-08-13] MEDS ORDERED: CALCIUM CARB-VIT D 500MG-200UN 1 EACH TAB PO SCH (21:00)
[2020-08-13] MEDS ORDERED: FAMOTIDINE 20 MG TAB PO SCH (21:00)
[2020-08-13] MEDS ORDERED: MONTELUKAST 10 MG TAB PO SCH (21:00)
[2020-08-14] MEDS ORDERED: LEVOTHYROXINE 50 MCG TAB PO SCH (07:30)
[2020-08-14] MEDS ORDERED: METOPROLOL TARTRATE 12.5 MG TAB PO SCH (09:00)
[2020-08-14] MEDS ORDERED: SERTRALINE 100 MG TAB PO SCH (09:00)
[2020-08-14] MEDS ORDERED: amLODIPine 5 MG TAB PO SCH (09:00)
[2020-08-14] MEDS ORDERED: ATORVASTATIN 10 MG TAB PO SCH (09:00)
[2020-08-14] MEDS ORDERED: MELOXICAM 7.5 MG TAB PO SCH (09:00)
[2020-08-14] MEDS ORDERED: NON FORMULARY DRUG (Omega-3 Fatty Acids/Fish Oil [Omega-3 Fish Oil 1,200 Mg Sfgl] 1 EACH C PO SCH (09:00)
[2020-08-14] MEDS ORDERED: lisinopriL 20 MG TAB PO SCH (09:00)
== END 2020-08-13 13:02 | disposition home or self-care (01) ==
LOC: OR 16:09 → 4SSUR 19:30 → OR 08-13 13:02
PROVIDERS: ATTEND Orthopaedic Surgery
DX: M66.261 Spontaneous rupture of extensor tendons, right lower leg (principal); I10 Essential (primary) hypertension; E78.5 Hyperlipidemia, unspecified; J45.909 Unspecified asthma, uncomplicated; K21.9 Gastro-esophageal reflux disease without esophagitis; F41.9 Anxiety disorder, unspecified; M19.90 Unspecified osteoarthritis, unspecified site; F32.9 Major depressive disorder, single episode, unspecified; E03.9 Hypothyroidism, unspecified; G89.29 Other chronic pain; Z79.890 Hormone replacement therapy; Z79.1 Long term (current) use of non-steroidal anti-inflammatories (NSAID); Z79.899 Other long term (current) drug therapy; Z98.890 Other specified postprocedural states; Z96.653 Presence of artificial knee joint, bilateral; Z90.710 Acquired absence of both cervix and uterus; Z90.49 Acquired absence of other specified parts of digestive tract; Z87.891 Personal history of nicotine dependence; Z80.3 Family history of malignant neoplasm of breast; Z82.49 Family history of ischemic heart disease and other diseases of the circulatory system; Z80.0 Family history of malignant neoplasm of digestive organs; Z80.52 Family history of malignant neoplasm of bladder
CPT/HCPCS: 97161; 97166; 64447; 76942; 85025; 27380; C1713 ×3; J2250; J1100; J2370; J2710; J0690 ×3; J2405; J2001; J3010; J1650; J1170; J2795; J1885; J0330; J2704

== ENCOUNTER → 2020-12-01 | Outpatient (CLI) | payer MEDICARE ==
--- NOTE | 2020-12-01 14:30 | US ---
EXAMINATION TYPE: US venous doppler duplex LE RT DATE OF EXAM: 12/01/2020 2:04 PM COMPARISON: NONE CLINICAL HISTORY: R79.9 high d dimer. Elevated D-Dimer SIDE PERFORMED: Right TECHNIQUE: The lower extremity deep venous system is examined utilizing real time linear array sonog felice with graded compression, doppler sonography and color-flow sonography. VESSELS IMAGED: Common Femoral Vein Deep Femoral Vein Greater Saphenous Vein * Femoral Vein Popliteal Vein Small Saphenous Vein * Proximal Calf Veins (* superficial vessels) Right Leg: Negative for DVT, enlarged lymph node within right groin= 1.2 cm Results called to Ute at Dr's office at time of exam IMPRESSION: 1. Right lower extremity ultrasound negative for deep venous thrombosis. 2. Incidental note made of a prominent right inguinal lymph node
--- NOTE | 2020-12-01 15:05 | XR ---
EXAMINATION TYPE: XR knee complete RT DATE OF EXAM: 12/01/2020 COMPARISON: 05/05/2020 HISTORY: Knee pain, decreased range of motion TECHNIQUE: 3 view right knee FINDINGS: Right knee prosthesis remains present. Tibial femoral compartments are present. Small joint effusion may be present. There is some soft tissue swelling and calcification anterior to the joint space. A patellar avulsion should be considered. Patella kinsey is present. This is a change from the postsurgical images of 2019 IMPRESSION: 1. Clinical consideration for avulsion of the patellar tendon from the inferior patella is recommend ed. 2. There is prominent soft tissue swelling in the infrapatellar region and anterior to the joint spac e. Infection is within the differential.
== END | disposition home or self-care (01) ==
LOC: RADUSWWP 13:47
PROVIDERS: ATTEND Family Medicine
DX: M79.661 Pain in right lower leg (principal); M25.561 Pain in right knee; R79.9 Abnormal finding of blood chemistry, unspecified
CPT/HCPCS: 87040

== ENCOUNTER → 2021-03-28 | Outpatient (CLI) | payer MEDICARE ==
--- NOTE | 2021-03-31 15:04 | MM ---
Reason for exam: screening (asymptomatic). Last mammogram was performed 2 years and 10 months ago. History: Patient is postmenopausal. Family history of breast cancer in sister at age 58. Benign US biopsy breast VAD RT of the right breast, April 26, 2017. Took hormonal contraceptives for 2 years. Took estrogen beginning at age 39. Physical Findings: A clinical breast exam by your physician is recommended on an annual basis and results should be correlated with mammographic findings. MG 3D Screening Mammo W/Cad Bilateral CC and MLO view(s) were taken. Prior study comparison: June 11, 2018, bilateral MG 3d screening mammo w/cad. April 26, 2017, right breast MG diagnostic mammo RT wo CAD. The breast tissue is heterogeneously dense. This may lower the sensitivity of mammography. Focal asymmetry upper outer left breast zone B. This finding is changed when compared with previous exams. ASSESSMENT: Incomplete: need additional imaging evaluation, BI-RAD 0 RECOMMENDATION: Special view mammogram and ultrasound of the left breast. [facility] will attempt to contact patient to return for supplemental views and ultrasound.
== END | disposition home or self-care (01) ==
LOC: RADMAMWWP 11:01
PROVIDERS: ATTEND Family Medicine
DX: Z12.31 Encounter for screening mammogram for malignant neoplasm of breast (principal)
CPT/HCPCS: 77063; 77067

== ENCOUNTER → 2021-04-14 | Outpatient (CLI) | payer MEDICARE ==
--- NOTE | 2021-04-14 10:08 | MM ---
Reason for exam: additional evaluation requested from abnormal screening. Last mammogram was performed 1 month ago. History: Patient is postmenopausal. Family history of breast cancer in sister at age 58. Benign US biopsy breast VAD RT of the right breast, April 26, 2017. Took hormonal contraceptives for 2 years. Took estrogen beginning at age 39. Physical Findings: Nurse did not find any significant physical abnormalities on exam. MG 3D Work Up W/Cad LT Spot compression CC, spot compression MLO, and ML view(s) were taken of the left breast. Prior study comparison: March 28, 2021, bilateral MG 3d screening mammo w/cad. June 11, 2018, bilateral MG 3d screening mammo w/cad. There are scattered fibroglandular densities. Partially circumscribed nodularity lateral anterior not as well seen on the spot MLO or lateral views. These results were verbally communicated with the patient and result sheet given to the patient on 04/14/21. ASSESSMENT: Incomplete: need additional imaging evaluation, BI-RAD 0 RECOMMENDATION: Ultrasound of the left breast. (1-4 o'clock)
--- NOTE | 2021-04-14 10:09 | USB ---
Reason for exam: additional evaluation requested from abnormal screening. History: Patient is postmenopausal. Family history of breast cancer in sister at age 58. Benign US biopsy breast VAD RT of the right breast, April 26, 2017. Took hormonal contraceptives for 2 years. Took estrogen beginning at age 39. US Breast Workup Limited LT Left limited breast ultrasound including focal area of concern, retroareolar and axilla demonstrates a 0.6 x 0.5 x 0.2cm cystic lesion at 1 o'clock. This likely corresponds to the mammographic finding. 6 month follow up mammogram recommended. Scanned 1-4 o'clock. These results were verbally communicated with the patient and result sheet given to the patient on 04/14/21. ASSESSMENT: Probably benign, BI-RAD 3 RECOMMENDATION: Follow-up diagnostic mammogram of the left breast in 6 months.
== END | disposition home or self-care (01) ==
LOC: RADMAMWWP 06:57
PROVIDERS: ATTEND Family Medicine
DX: R92.8 Other abnormal and inconclusive findings on diagnostic imaging of breast (principal); Z80.3 Family history of malignant neoplasm of breast
CPT/HCPCS: 77065; 76642; G0279; 77061

== ENCOUNTER → 2021-12-23 | Outpatient (CLI) | payer MEDICARE ==
[2021-12-23 14:07] LABS: HCT 38.8 % (37.2-46.3); HGB 11.8 g/dL (12.0-15.0); MCH 25.3 pg (27.0-32.0); MCHC 30.4 g/dL (32.0-37.0); MCV 83.3 fL (80.0-97.0); Mean Platelet Volume 10.5 fL (9.5-12.2); NRBC Per 100 WBC 0 /100 WBCS (0.0-0.0); Platelet Count 382 X 10*3/uL (140-440); RBC 4.66 X 10*6/uL (4.10-5.20); RDW 14.1 % (11.5-14.5)
[2021-12-23 17:23] LABS: ALT 15 U/L (8-44); AST 21 U/L (13-35); African American GFR (CKD) 37.9 (60.0-200.0); Albumin 4.4 g/dL (3.8-4.9); Albumin/Globulin Ratio 1.54 (1.60-3.17); Alkaline Phosphatase 156 U/L (41-126); BUN/Creat Ratio 17.04 Ratio (12.00-20.00); Blood Urea Nitrogen 27.6 mg/dL (9.0-27.0); Calcium 10.1 mg/dL (8.7-10.3); Carbon Dioxide 22.8 mmol/L (20.0-27.5); Chloride 101 mmol/L (96-109); Chol/HDL Ratio 3.29 Ratio; Globulin 2.9 g/dL (1.6-3.3); Glucose 93 mg/dL (70-110); Non-African American GFR(CKD) 32.7 (60.0-200.0); Potassium 5.2 mmol/L (3.5-5.5); Sodium 135 mmol/L (135-145); Total Protein 7.2 g/dL (6.2-8.2)
== END | disposition home or self-care (01) ==
LOC: LABWHC1 08:51
PROVIDERS: ATTEND Family Medicine
DX: I10 Essential (primary) hypertension (principal); E78.5 Hyperlipidemia, unspecified; E03.9 Hypothyroidism, unspecified; E55.9 Vitamin D deficiency, unspecified
CPT/HCPCS: 36415; 80053; 80061; 82306; 84439; 84443; 85027

== ENCOUNTER → 2023-06-11 | Outpatient (CLI) | payer MEDICARE ==
--- NOTE | 2023-06-12 08:11 | MM ---
Reason for Exam: Screening (asymptomatic). Last mammogram was performed 1 year(s) and 2 month(s) ago. Patient History: Menarche at age 16. First Full-Term at age 17. Left ovary removed at age 40. Right ovary removed at age 40. Hysterectomy at age 40. Postmenopausal. Estrogen, from age 39 until age 40. Patient used Hormonal Contraceptives for 2 years. 04/26/2017, Benign Core Biopsy on the right side. Sister had breast cancer, age 58. Risk Values: Elisha 5 year model risk: 3.4%. NCI Lifetime model risk: 10.8%. Prior Study Comparison: 03/28/2021 Bilateral Screening Mammogram, [facility]. 04/14/2021 Left Diagnostic Mammogram, [facility]. 04/27/2022 Bilateral MG 3D screening mammo w/cad, [facility]. Tissue Density: There are scattered fibroglandular densities. Findings: Analyzed By CAD. There is no suspicious group of microcalcifications or new suspicious mass in either breast. Benign-appearing calcification within the left breast. Stable chronic nodularity within the right breast. Biopsy clip within the right breast. Overall Assessment: Benign, BI-RAD 2 Management: Screening Mammogram of both breasts in 1 year. A clinical breast exam by your physician is recommended on an annual basis and results should be correlated with mammographic findings. Note on Elisha scores and lifetime risk: 1. A Elisha score greater than 3% is considered moderate risk. If this is the case, consider specialist referral to assess eligibility for a risk reducing agent. If overall lifetime risk for the development of breast cancer is 20% or higher, the patient may qualify for future screening with alternating mammogram and breast MRI. Electronically signed and approved by: Rai Ross D.O.
== END | disposition home or self-care (01) ==
LOC: RADMAMWWP 16:03
PROVIDERS: ATTEND Family Medicine
DX: Z12.31 Encounter for screening mammogram for malignant neoplasm of breast (principal); Z78.0 Asymptomatic menopausal state; Z80.3 Family history of malignant neoplasm of breast
CPT/HCPCS: 77063; 77067

== ENCOUNTER → 2024-06-27 | Outpatient (CLI) | payer MEDICARE ==
--- NOTE | 2024-06-30 18:02 | MM ---
Reason for Exam: Screening (asymptomatic). Last screening mammogram was performed 12 month(s) ago. Patient History: Menarche at age 16. First Full-Term at age 17. Left ovary removed at age 40. Right ovary removed at age 40. Hysterectomy at age 40. Postmenopausal. Estrogen, from age 39 until age 40. Patient used Hormonal Contraceptives for 2 years. 04/26/2017, Benign Core Biopsy on the right side. Sister had breast cancer, age 58. Risk Values: Elisha 5 year model risk: 3.4%. NCI Lifetime model risk: 10.4%. Prior Study Comparison: 04/14/2021 Left Diagnostic Mammogram, [facility]. 04/27/2022 Bilateral MG 3D screening mammo w/cad, [facility]. 06/11/2023 Bilateral MG 3D screening mammo w/cad, [facility]. Tissue Density: There are scattered areas of fibroglandular density. Findings: Analyzed By CAD. Chronic nodularity on the right. Unchanged low axillary tail lymph nodes on the left. There is no suspicious group of microcalcifications or new suspicious mass in either breast. Overall Assessment: Benign, BI-RAD 2 Management: Screening Mammogram of both breasts in 1 year. See note below in regards to patient's increased 5 year Elisha score . Patient should continue monthly self-breast exams. A clinical breast exam by your physician is recommended on an annual basis. This exam should not preclude additional follow-up of suspicious palpable abnormalities. Note on Elisha scores and lifetime risk: 1. A Elisha score greater than 3% is considered moderate risk. If this is the case, consider specialist referral to assess eligibility for a risk reducing agent. 2. If overall lifetime risk for the development of breast cancer is 20% or higher, the patient may qualify for future screening with alternating mammogram and breast MRI. [facility], , 06/30/2024 5:59 PM. Electronically signed and approved by: Nino Manriquez M.D. Radiologist
== END | disposition home or self-care (01) ==
LOC: RADMAMWWP 08:38
PROVIDERS: ATTEND Family Medicine
CPT/HCPCS: 77063; 77067